=== PATIENT | female | born 1990 | race Caucasian/White ===

== ENCOUNTER 2017-01-30 02:41 | Inpatient (IN) | payer MEDICAID ==
[2017-01-30 03:20] LABS: APPEARANCE,URINE TURBID; BILIRUBIN,URINE NEGATIVE (NEGATIVE); GLUCOSE, URINE NEGATIVE (NEGATIVE); KETONES,URINE NEGATIVE (NEGATIVE); LEUKOCYTE ESTERASE,URINE TRACE (NEGATIVE); NITRITE,URINE NEGATIVE (NEGATIVE); PROTEIN,URINE 100 mg/dL (NEGATIVE); URINE SPECIFIC GRAVITY 1.003; UROBILINOGEN,URINE NEGATIVE mg/dL (<2.0)
[2017-01-30 03:30] LABS: AMNISURE (ROM) POSITIVE (NEGATIVE)
[2017-01-30 03:36] LABS: URINE BARBITURATES SCREEN NEGATIVE; URINE METHADONE SCREEN NEGATIVE; URINE OPIATES LOW NEGATIVE; URINE PHENCYCLIDINE SCREEN NEGATIVE
[2017-01-30] MEDS ORDERED: OXYTOCIN/NORMAL SALINE 1,000 ML IV PRN ×2 (03:48→11:56)
[2017-01-30] MEDS ORDERED: PENICILLIN G-K 5 MILLION UNIT VIAL IV PRN (03:50)
[2017-01-30] MEDS ORDERED: OXYTOCIN/NORMAL SALINE 20 UNIT/1,000 ML RTUINJ ONE (03:50)
[2017-01-30] MEDS ORDERED: PENICILLIN G-K 5 MILLION UNIT VIAL ONE ×2 (03:50→07:28)
[2017-01-30] MEDS ORDERED: PENICILLIN G POTASSIUM 5,000,000 UNIT in DEXTROSE 5%-WATER 100 ML IV ONE (04:00)
[2017-01-30 04:10] LABS: ABSOLUTE BASOPHILS # (AUTO) 0.1 10^3/uL (0.0-0.2); ABSOLUTE EOSINOPHILS # (AUTO) 0.2 10^3/uL (0.0-0.6); ABSOLUTE MONOCYTES (AUTO) 1.8 10^3/uL (0.1-1.4); ABSOLUTE NEUT (AUTO) 8.5 10^3/uL (1.7-8.2); BASOPHILS % (AUTO) 0.4 % (0-2); EOSINOPHILS % (AUTO) 1.3 % (0-6); HEMATOCRIT 34.8 % (36.0-47.0); HEMOGLOBIN 11.7 g/dL (12.0-15.5); HGB HCT DIFFERENCE 0.3; LYMPHOCYTES % (AUTO) 15.6 % (13-45); MEAN CORPUSCULAR HEMOGLOBIN 27.6 pg (27.0-33.4); MEAN CORPUSCULAR HGB CONC 33.5 g/dL (32.0-36.0); MEAN CORPUSCULAR VOLUME 82 fl (80-97); MONOCYTES % (AUTO) 14.7 % (3-13); RED BLOOD COUNT 4.23 10^6/uL (3.72-5.28); RED CELL DISTRIBUTION WIDTH 20.1 % (11.5-14.0); WHITE BLOOD COUNT 12.5 10^3/uL (4.0-10.5)
[2017-01-30] MEDS: RINGERS SOLUTION,LACTATED 1,000 ML IV PRN ×3 (04:10→09:39)
[2017-01-30] MEDS ORDERED: PENICILLIN G POTASSIUM 2,500,000 UNIT in DEXTROSE 5%-WATER 50 ML IV SCH (08:00)
--- NOTE | 2017-01-30 08:01 | L&D Flow Sheet ---
LD Flowsheet Datetime Report Generated by CPN: 01/30/2017 08:00 Datetime: 01/30/2017 07:51 NBP Sys/Smita/Mean (mmHg): 125 (QS system process) : 66 (QS system process) : 90 (QS system process) Pulse: 87 (QS system process) LaborFlag: Antepartum (QS system process) Datetime: 01/30/2017 07:19 NBP Sys/Smita/Mean (mmHg): 129 (QS system process) : 68 (QS system process) : 92 (QS system process) Pulse: 91 (QS system process) LaborFlag: Antepartum (QS system process) Datetime: 01/30/2017 07:16 Maternal Assessment Level of Consciousness: Fully Conscious (Sri Nazario RN) DTR's/Clonus: DTRs 2+; No Clonus (Sir Nazario RN) Headache: Denies (Sri Nazario RN) Breath Sounds, Left: Clear and Equal (Sri Nazario RN) Breath Sounds, Right: Clear and Equal (Sri Nazario RN) Nausea/Vomiting: Hx of Nausea/Vomiting (Sri Nazario RN) RUQ Epigastric Pain: Denies (Sri Nazario RN) Datetime: 01/30/2017 07:10 Medications Pitocin (milliunit): Pitocin Increased to (milliunits) @ 10 (Sri Nazario, RN) Communication Communication: RN at Bedside (Sri Nazario, RN) Communication Comments: Bedside report received from B. Ring, RN. Care assumed. (Sri Nazario, RN) Datetime: 01/30/2017 07:08 Patient Care Comments: Report to Armen Nazario RN. Care relinquished at this time. (Karen Ring, RN) Datetime: 01/30/2017 07:00 Uterine Activity Monitor Mode: External; Palpation (Karen Ring, RN) Frequency (min): 1-4 (Karen Ring, RN) Quality: Mild/Moderate (Karen Ring, RN) Duration (sec): 70-110 (Karen Ring, RN) Resting Tone (Palpate): Relaxed (Karen Ring, RN) Assessment A Monitor Mode: External US (Karen Ring, RN) FHR Baseline Rate : 145 (Karen Ring, RN) Variability: Moderate 6-25 bpm (Karen Ring, RN) Accelerations: None (Karen Ring, RN) Decelerations: None (Karen Ring, RN) Datetime: 01/30/2017 06:49 NBP Sys/Smita/Mean (mmHg): 116 (QS system process) : 63 (QS system process) : 81 (QS system process) Pulse: 83 (QS system process) LaborFlag: Antepartum (QS system process) Datetime: 01/30/2017 06:48 Pain Coping: Sleeping (Karen Ring, RN) Datetime: 01/30/2017 06:45 Uterine Activity Monitor Mode: External; Palpation (Karen Ring, RN) Frequency (min): 3-5 (Karen Ring, RN) Quality: Mild/Moderate (Karen Ring, RN) Duration (sec): 70-110 (Karen Ring, RN) Resting Tone (Palpate): Relaxed (Karen Ring, RN) Assessment A Monitor Mode: External US (Karen Ring, RN) FHR Baseline Rate : 145 (Karen Ring, RN) Variability: Absent - Undetectable (Karen Ring, RN) Accelerations: 15X15 (Karen Ring, RN) Decelerations: None (Karen Ring, RN) Medications Pitocin (milliunit): Pitocin Remains (milliunits) @ 8 (Karen Ring, RN) Datetime: 01/30/2017 06:30 Uterine Activity Monitor Mode: External; Palpation (Karen Ring, RN) Frequency (min): 3-4.5 (Karen Ring, RN) Quality: Mild/Moderate (Karen Ring, RN) Duration (sec): 40-120 (Karen Ring, RN) Duration Criteria: Less than Two 120 Second Contractions (Karen Ring, RN) Pattern: Normal: <= 5 Contractions in 10 Minutes (Karen Ring, RN) Resting Tone (Palpate): Relaxed (Karen Ring, RN) Assessment A Monitor Mode: External US (Karen Ring, RN) FHR Baseline Rate : 145 (Karen Ring, RN) Variability: Moderate 6-25 bpm (Karen Ring, RN) Accelerations: 15X15 (Karen Ring, RN) Decelerations: None (Karen Ring, RN) Medications Pitocin (milliunit): Pitocin Increased to (milliunits) @ 8 (Karen Ring, RN) Datetime: 01/30/2017 06:27 Pain Coping: Sleeping (Karen Ring, RN) Datetime: 01/30/2017 06:19 NBP Sys/Smita/Mean (mmHg): 124 (QS system process) : 60 (QS system process) : 84 (QS system process) Pulse: 89 (QS system process) Respirations: 18 (Karen Ring, RN) Temperature (F): 98.1 (Karen Ring, RN) Temperature (C): 36.7 (QS system process) Temperature Route: Oral (Karen Ring, RN) LaborFlag: Antepartum (QS system process) Datetime: 01/30/2017 06:15 Uterine Activity Monitor Mode: External; Palpation (Karen Ring, RN) Frequency (min): 2.5-5 (Karen Ring, RN) Duration (sec): 70-110 (Karen Ring, RN) Resting Tone (Palpate): Relaxed (Karen Ring, RN) Assessment A Monitor Mode: External US (Karen Ring, RN) FHR Baseline Rate : 145 (Karen Ring, RN) Variability: Moderate 6-25 bpm (Karen Ring, RN) Accelerations: None (Karen Ring, RN) Decelerations: None (Karen Ring, RN) Medications Pitocin (milliunit): Pitocin Remains (milliunits) @ 6 (Karen Ring, RN) Datetime: 01/30/2017 06:05 Patient Care Hygiene: Peripad Changed; Gown Changed (Karen Ring, RN) Datetime: 01/30/2017 06:00 Uterine Activity Monitor Mode: External; Palpation (Karen Ring, RN) Frequency (min): 3.5-6.5 (Karen Ring, RN) Quality: Mild/Moderate (Karen Ring, RN) Duration (sec): 40-90 (Karen Ring, RN) Resting Tone (Palpate): Relaxed (Karen Ring, RN) Assessment A Monitor Mode: External US (Karen Ring, RN) Monitor Interventions for FHR: Ultrasound Adjusted (Karen Ring, RN) Comments: Unable to accurately assess due to audible movement. RN remains continously at bedside adjusting monitors. (Karen Ring, RN) Medications Pitocin (milliunit): Pitocin Increased to (milliunits) @ 6 (Karen Ring, RN) Datetime: 01/30/2017 05:49 NBP Sys/Smita/Mean (mmHg): 122 (QS system process) : 65 (QS system process) : 86 (QS system process) Pulse: 91 (QS system process) LaborFlag: Antepartum (QS system process) Datetime: 01/30/2017 05:45 Uterine Activity Monitor Mode: External; Palpation (Karen Ring, RN) Frequency (min): 4-7 (Karen Ring, RN) Quality: Moderate (Karen Ring, RN) Duration (sec): 70-90 (Karen Ring, RN) Resting Tone (Palpate): Relaxed (Karen Ring, RN) Assessment A Monitor Mode: External US (Karen Ring, RN) FHR Baseline Rate : 145 (Karen Ring, RN) Variability: Moderate 6-25 bpm (Karen Ring, RN) Accelerations: 15X15 (Karen Ring, RN) Decelerations: None (Karen Ring, RN) Medications Pitocin (milliunit): Pitocin Remains (milliunits) @ 4 (Karen Ring, RN) Datetime: 01/30/2017 05:30 Uterine Activity Monitor Mode: External (Karen Ring, RN) Frequency (min): 4-5 (Karen Ring, RN) Quality: Moderate (Karen Ring, RN) Duration (sec): 50-1000 (Karen Ring, RN) Resting Tone (Palpate): Relaxed (Karen Ring, RN) Assessment A Monitor Mode: External US (Karen Ring, RN) FHR Baseline Rate : 145 (Karen Ring, RN) Variability: Moderate 6-25 bpm (Karen Ring, RN) Accelerations: 15X15 (Karen Ring, RN) Decelerations: None (Karen Ring, RN) Medications Pitocin (milliunit): Pitocin Increased to (milliunits) @ 4 (Karen Ring, RN) Datetime: 01/30/2017 05:19 NBP Sys/Smita/Mean (mmHg): 122 (QS system process) : 69 (QS system process) : 89 (QS system process) Pulse: 110 (QS system process) LaborFlag: Antepartum (QS system process) Datetime: 01/30/2017 05:15 Uterine Activity Monitor Mode: External; Palpation (Karen Ring, RN) Frequency (min): 1-5 (Karen Ring, RN) Quality: Mild/Moderate (Karen Ring, RN) Duration (sec): 50-100 (Karen Ring, RN) Resting Tone (Palpate): Relaxed (Karen Ring, RN) Assessment A Monitor Mode: External US (Karen Ring, RN) FHR Baseline Rate : 150 (Karen Ring, RN) Variability: Moderate 6-25 bpm (Karen Ring, RN) Accelerations: 10X10 (Karen Ring, RN) Decelerations: None (Karen Ring, RN) Medications Pitocin (milliunit): Pitocin Remains (milliunits) @ 2 (Karen Ring, RN) Datetime: 01/30/2017 05:00 Uterine Activity Monitor Mode: External; Palpation (Karen Ring, RN) Frequency (min): 2-7 (Karen Ring, RN) Quality: Mild/Moderate (Karen Ring, RN) Duration (sec): 80-110 (Karen Ring, RN) Duration Criteria: Less than Two 120 Second Contractions (Karen Ring, RN) Pattern: Normal: <= 5 Contractions in 10 Minutes (Karen Ring, RN) Resting Tone (Palpate): Relaxed (Karen Ring, RN) Assessment A Monitor Mode: External US (Karen Ring, RN) FHR Baseline Rate : 150 (Karen Ring, RN) Variability: Moderate 6-25 bpm (Karen Ring, RN) Accelerations: None (Karen Ring, RN) Decelerations: None (Karen Ring, RN) Medications Pitocin (milliunit): Pitocin Remains (milliunits) @ 2 (Karen Ring, RN) Datetime: 01/30/2017 04:56 Monitor Interventions for FHR: Ultrasound Adjusted (Karen Ring, RN) Datetime: 01/30/2017 04:52 NBP Sys/Smita/Mean (mmHg): 132 (QS system process) : 68 (QS system process) : 93 (QS system process) Pulse: 104 (QS system process) LaborFlag: Antepartum (QS system process) Datetime: 01/30/2017 04:48 Patient Care Comments: Pt throwing up. RN at bedside. Washcloth applied to head, blue bag for vomit provided. (Karen Ring, RN) Datetime: 01/30/2017 04:45 Uterine Activity Monitor Mode: External; Palpation (Karen Ring, RN) Frequency (min): 4-7 (Karen Ring, RN) Quality: Mild/Moderate (Karen Ring, RN) Duration (sec): 80-120 (Karen Ring, RN) Duration Criteria: Less than Two 120 Second Contractions (Karen Ring, RN) Pattern: Normal: <= 5 Contractions in 10 Minutes (Karen Ring, RN) Resting Tone (Palpate): Relaxed (Karen Ring, RN) Assessment A Monitor Mode: External US (Karen Ring, RN) FHR Baseline Rate : 145 (Karen Ring, RN) Variability: Moderate 6-25 bpm (Karen Ring, RN) Accelerations: 15X15 (Karen Ring, RN) Decelerations: None (Karen Ring, RN) Medications Pitocin (milliunit): Pitocin Remains (milliunits) @ 2 (Karen Ring, RN) Datetime: 01/30/2017 04:40 Medications Pitocin (milliunit): Pitocin Started (milliunits) @ 2 (Karen Ring, RN) Datetime: 01/30/2017 04:30 Uterine Activity Monitor Mode: External; Palpation (Karen Ring, RN) Frequency (min): 4-7 (Karen Ring, RN) Quality: Mild/Moderate (Karen Ring, RN) Duration (sec): 60-110 (Karen Ring, RN) Duration Criteria: Less than Two 120 Second Contractions (Karen Ring, RN) Pattern: Normal: <= 5 Contractions in 10 Minutes (Karen Ring, RN) Resting Tone (Palpate): Relaxed (Karen Ring, RN) Assessment A Monitor Mode: External US (Karen Ring, RN) FHR Baseline Rate : 145 (Karen Ring, RN) Variability: Moderate 6-25 bpm (Karen Ring, RN) Accelerations: 15X15 (Karen Ring, RN) Decelerations: None (Karen Ring, RN) Datetime: 01/30/2017 04:19 NBP Sys/Smita/Mean (mmHg): 122 (QS system process) : 69 (QS system process) : 90 (QS system process) Pulse: 100 (QS system process) Respirations: 18 (Karen Ring, RN) Temperature (F): 98.0 (Karen Ring, RN) Temperature (C): 36.7 (QS system process) Temperature Route: Oral (Karen Ring, RN) LaborFlag: Antepartum (QS system process) Datetime: 01/30/2017 04:11 Antibiotics: Penicillin IV (Units) @ 5 million units (Suzie Karl, RN) Patient Care Comments: Consents signed (Karen Ring, RN) Datetime: 01/30/2017 04:00 Uterine Activity Monitor Mode: External; Palpation (Karen Ring, RN) Frequency (min): 2.5-70 (Karen Ring, RN) Quality: Mild/Moderate (Karen Ring, RN) Duration (sec): 70-110 (Karen Ring, RN) Resting Tone (Palpate): Relaxed (Karen Ring, RN) Assessment A Monitor Mode: External US (Karen Ring, RN) FHR Baseline Rate : 150 (Karen Ring, RN) Variability: Moderate 6-25 bpm (Karen Ring, RN) Accelerations: 15X15 (Karen Ring, RN) Decelerations: None (Karen Ring, RN) Datetime: 01/30/2017 03:45 Communication Comments: Dr. Nolasco remains on nursing unit. Orders received to begin pitocin at 2 miliunits and increase by 2 milunits every 30 minutes for a maximum of 20 miliunits or until adequate labor is established. (Karen Ring, RN) Datetime: 01/30/2017 03:35 Communication Comments: Orders received to admit patient. (Karen Ring, RN) Datetime: 01/30/2017 03:34 Vaginal Exam Dilatation (cm): 1.0 (Karen Ring, RN) Effacement (%): 50 (Karen Ring, RN) Station: -2 (Karen Ring, RN) Exam by: Dr.Nolasco (Karen Ring, RN) Datetime: 01/30/2017 03:31 Vital Signs Stage of : Antepartum (Karen Ring, RN) Datetime: 01/30/2017 03:30 Uterine Activity Monitor Mode: External; Palpation (Karen Ring, RN) Frequency (min): 2-7 (Karen Ring, RN) Quality: Mild/Moderate (Karen Ring, RN) Duration (sec): 70-110 (Karen Ring, RN) Duration Criteria: Less than Two 120 Second Contractions (Karen Ring, RN) Pattern: Normal: <= 5 Contractions in 10 Minutes (Karen Ring, RN) Resting Tone (Palpate): Relaxed (Karen Ring, RN) Assessment A Monitor Mode: External US (Karen Ring, RN) FHR Baseline Rate : 150 (Kraen Ring, RN) Variability: Moderate 6-25 bpm (Karen Ring, RN) Accelerations: 10X10 (Karen Ring, RN) Decelerations: None (Karen Ring, RN) Communication Comments: Dr. Nolasco at bedside. (Karen Ring, RN) Datetime: 01/30/2017 02:55 Pain Pain Scale: 0 (Karen Ring, RN) Pain Presence: None/Denies (Karen Ring, RN) Pain Type: N/A (Karen Ring, RN) Vaginal Bleeding: None (Karen Ring, RN) Maternal Assessment Level of Consciousness: Fully Conscious (Karen Ring, RN) DTR's/Clonus: DTRs 2+; No Clonus (Karen Ring, RN) Headache: Denies (Karen Ring, RN) Breath Sounds, Left: Clear and Equal (Karen Ring, RN) Breath Sounds, Right: Clear and Equal (Karen Ring, RN) Nausea/Vomiting: Denies (Karen Ring, RN) RUQ Epigastric Pain: Denies (Karen Ring, RN) Teaching Instructional Method: Verbal; Patient Instructed; Family/Support Person Instructed; Verbalized Understanding (Karen Ring, RN) Unit Routine: Colver to Room; Call Gabriel; Bed; Handwashing; Flu/Illness Precautions; Monitoring; Safety/Fall Risk Prevention; Bathroom Privileges (Karen Moran, RN) Datetime: 01/30/2017 02:50 Membranes Ruptured Date/Time: 01/30/2017 00:00 (Karen Moran RN) Membranes Rupture Method: Spontaneous (Karen Moran RN) Amniotic Fluid Color: Clear (Karen Moran RN) Amniotic Fluid Amount: Small (Karen Moran RN)
[2017-01-30] MEDS ORDERED: BUPIVACAINE HCL/NS/PF 100 ML EPI PRN (09:02)
[2017-01-30] MEDS ORDERED: EPHEDRINE SULFATE INJ 50 MG/1 ML AMPULE IV PRN (09:02)
[2017-01-30] MEDS ORDERED: FENTANYL/BUPIVACAINE/NS/PF 100 ML EPI PRN (09:02)
[2017-01-30] MEDS ORDERED: BUPIVACAINE HCL 0.25 % INJ/PF (2.5 MG/1 ML) 30 ML VIAL INFIL ONE (09:02)
[2017-01-30] MEDS ORDERED: BENZOIN/ALOE VERA/STORAX/TOLU TINCTURE 60 ML TP PRN (09:02)
[2017-01-30] MEDS ORDERED: BUPIVACAINE HCL 0.25 % INJ/PF (2.5 MG/1 ML) 30 ML VIAL ONE (09:07)
[2017-01-30] MEDS ORDERED: FENTANYL/BUPIVACAINE/NS/PF 200 MCG/100 ML RTUINJ EPI ONE (09:07)
[2017-01-30] MEDS ORDERED: EPHEDRINE SULFATE INJ 50 MG/1 ML AMPULE ONE (09:07)
[2017-01-30] MEDS ORDERED: PENICILLIN G-K 5 MILLION UNIT VIAL IV SCH (10:00)
[2017-01-30] MEDS ORDERED: LIDOCAINE 1% INJ-PF (10 MG/ML) 30 ML SDV ONE (10:59)
[2017-01-30] MEDS ORDERED: MISOPROSTOL 0.2 MG TABLET ONE (10:59)
[2017-01-30] MEDS ORDERED: DIPH/PERTUSS(ACELL)/TETANUS VAC/PF 0.5 ML SYR (>=10YO) IM PRN (11:56)
[2017-01-30] MEDS ORDERED: ZOLPIDEM TARTRATE 5 MG TABLET PO PRN (11:56)
[2017-01-30] MEDS ORDERED: DIBUCAINE 1% OINTMENT 28 GM TP PRN (11:56)
[2017-01-30] MEDS ORDERED: BENZOCAINE/MENTHOL AEROSOL SPRAY 56 ML TOP PRN (11:56)
[2017-01-30] MEDS ORDERED: MEASLES,MUMPS&RUBELLA VACC/PF 0.5 ML VIAL SUBCUT PRN (11:56)
[2017-01-30] MEDS ORDERED: ACETAMINOPHEN WITH CODEINE #3 TABLET PO PRN ×2 (11:56)
[2017-01-30] MEDS ORDERED: METHYLERGONOVINE MALEATE INJ/PF 0.2 MG/1 ML AMPULE ONE (12:09)
--- NOTE | 2017-01-30 14:34 | Admission Physical ---
Datetime Report Generated by CPN: 01/30/2017 14:34 CURRENT ADMISSION Hx Assessment: The History has been Reviewed and is Current Chief Complaint: Suspected Ruptured Membranes Indication for Induction: Not Applicable Admit Plan: Admit to Unit; Initiate Labor Protocol ALLERGIES Medication Allergies: No Medication Allergies: No Known Allergies (01/30/2017) Latex: No Latex Allergies Food Allergies: denies Environmental Allergies: denies OBSTETRICAL HISTORY EDC: 02/08/2017 00:00 : 2 Para: 1 : 1 Livin Gestational Diabetes: No Rh Sensitization: No Incompetent Cervix: No SHIVANI: No Infertility: No ART Treatment: No Uterine Anomaly: No IUGR: No Hx Previous C/S: No Macrosomia: No Hx Loss/Stillborn: No PIH: No Hx : No Placenta Previa/Abruption: No Depression/PP Depression: No PTL/PROM: Yes Post Hemorrhage: No Current Procedures: Ultrasound Obstetrical History Comments: G1: 2009 36 weeks 7 lbs 5 oz [place] G2: current 2 vessel cord, high weight gain, anemia SEE RECORDS Alcohol: No Marijuana : No Cocaine: No Other Illicit Drugs: No Cigarettes: Former Smoker. 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 INFECTIOUS HISTORY Gonorrhea: No Genital Herpes: No Chlamydia: No Tuberculosis: No Syphilis: No Hepatitis: No HIV/AIDS Exposure: No Rash or Viral Illness: No HPV: No Infectious History Comments: 2006 PHYSICAL EXAM General: Normal HEENT: Deferred Neurologic: Deferred Thyroid: Deferred Heart: Normal Lungs: Deferred Breast: Deferred Back: Normal Abdomen: Normal Genitourinary Exam: Normal Extremities: Normal DTRs: Normal Pelvic Type: Adequate VAGINAL EXAM Contraction Comments: irreg MEMBRANES Membranes: Ruptured FETUS A EGA: 38.5 FHR- Baseline: 150 Variability: Moderate 6-25bpm Accelerations: 15X15 Decelerations: None FHR Category: Category I Admit Comment: Term Srom. Gbs positive for pcn. 2vc PLANS FOR LABOR AND DELIVERY Labor and Delivery: None Pain Management: Natural; Medications; Epidural Feeding Preference: Breast Benefit of Breast Feed Discussed: Yes Circumcision: N/A INFORMED CONSENT Signature: with User ID: [email or web address]
[2017-01-30] MEDS: IBUPROFEN 800 MG TABLET PO SCH ×2 (14:56→21:49)
[2017-01-30] MEDS: DOCUSATE SODIUM 100 MG CAPSULE PO SCH (17:08)
[2017-01-30] MEDS: FERROUS SULFATE 325 MG TABLET PO SCH (17:08)
--- NOTE | 2017-01-30 19:01 | L&D Flow Sheet ---
LD Flowsheet Datetime Report Generated by CPN: 01/30/2017 19:00 Datetime: 01/30/2017 14:16 NBP Sys/Smita/Mean (mmHg): 113 (QS system process) : 53 (QS system process) : 77 (QS system process) Pulse: 97 (QS system process) Datetime: 01/30/2017 13:45 NBP Sys/Smita/Mean (mmHg): 118 (QS system process) : 58 (QS system process) : 83 (QS system process) Pulse: 100 (QS system process) Datetime: 01/30/2017 13:30 NBP Sys/Smita/Mean (mmHg): 114 (QS system process) : 53 (QS system process) : 77 (QS system process) Pulse: 88 (QS system process) Datetime: 01/30/2017 13:16 NBP Sys/Smita/Mean (mmHg): 123 (QS system process) : 84 (QS system process) : 91 (QS system process) Pulse: 92 (QS system process) Respirations: 16 (Sri Nazario RN) Pain Scale: 3 (Annotations: Pt. denies need for medication at this time.) (Sri Nazario RN) Pain Presence: None/Denies (Sri Nazario RN) Pain Type: N/A (Sri Nazario RN) Pain Goal: 0 (Sri Nazario RN) Datetime: 01/30/2017 13:00 NBP Sys/Smita/Mean (mmHg): 117 (QS system process) : 56 (QS system process) : 81 (QS system process) Pulse: 81 (QS system process) Pain Scale: 0 (Sri Nazario, RN) Pain Presence: None/Denies (Sri Nazario, RN) Pain Type: N/A (Sri Nazario, RN) Pain Goal: 0 (Sri Nazario, RN) Datetime: 01/30/2017 12:45 NBP Sys/Smita/Mean (mmHg): 113 (QS system process) : 61 (QS system process) : 81 (QS system process) Pulse: 89 (QS system process) Pain Scale: 0 (Sri Nazario, RN) Pain Presence: None/Denies (Sri Nazario, RN) Pain Type: N/A (Sri Nazario, RN) Pain Goal: 0 (Sri Nazario, RN) Datetime: 01/30/2017 12:30 NBP Sys/Smita/Mean (mmHg): 113 (QS system process) : 56 (QS system process) : 78 (QS system process) Pulse: 95 (QS system process) Pain Scale: 0 (Sri Nazario, RN) Pain Presence: None/Denies (Sri Nazario, RN) Pain Type: N/A (Sri Nazario, RN) Pain Goal: 0 (Sri Nazario, RN) Datetime: 01/30/2017 12:15 NBP Sys/Smita/Mean (mmHg): 117 (QS system process) : 57 (QS system process) : 81 (QS system process) Pulse: 88 (QS system process) Respirations: 16 (Sri Nazario, RN) Pain Scale: 0 (Sri Nazario, RN) Pain Presence: None/Denies (Sri Nazario, RN) Pain Type: N/A (Sri Nazario, RN) Pain Goal: 0 (Sri Nazario, RN) Datetime: 01/30/2017 12:00 NBP Sys/Smita/Mean (mmHg): 112 (QS system process) : 56 (QS system process) : 81 (QS system process) Pulse: 83 (QS system process) Pain Scale: 0 (Sri Nazario, RN) Pain Presence: None/Denies (Sri Nazario, RN) Pain Type: N/A (Sri Nazario, RN) Pain Goal: 0 (Sri Nazario, RN) Datetime: 01/30/2017 11:45 NBP Sys/Smita/Mean (mmHg): 118 (QS system process) : 59 (QS system process) : 81 (QS system process) Pulse: 98 (QS system process) Datetime: 01/30/2017 11:39 Stage of : Recovery (Sri Nazario, RN) Datetime: 01/30/2017 11:33 Stage 2 Comments: of viable baby girl; pitocin bolusing per Dr. Carlos (Sri Nazario RN) Datetime: 01/30/2017 11:30 NBP Sys/Smita/Mean (mmHg): 112 (QS system process) : 54 (QS system process) : 78 (QS system process) Pulse: 141 (QS system process) Monitor Mode: External; Palpation (Sri Nazario RN) Frequency (min): 2-3 (Sri Nazario RN) Quality: Moderate (Sri Nazario RN) Duration (sec): 80-100 (Sri Nazario RN) Resting Tone (Palpate): Relaxed (Sri Nazario RN) Monitor Mode: External US (Sri Nazario RN) FHR Baseline Rate : 140 (Sri Nazario RN) Variability: Minimal - Undetectable to <=5 bpm (Sri Nazario RN) Accelerations: None (Sri Nazario RN) Decelerations: Variable (Sri Nazario RN) Pitocin (milliunit): Pitocin Remains (milliunits) @ 16 (Sri Nazario RN) LaborFlag: Antepartum (QS system process) Datetime: 01/30/2017 11:15 NBP Sys/Smita/Mean (mmHg): 116 (QS system process) : 57 (QS system process) : 79 (QS system process) Pulse: 90 (QS system process) Monitor Mode: External; Palpation (Sri Nazario RN) Frequency (min): 1.5-5 (Sri Nazario RN) Quality: Moderate (Sri Nazario RN) Duration (sec): 70-120 (Sri Nazario RN) Resting Tone (Palpate): Relaxed (Sri Nazario RN) Monitor Mode: External US (Sri Nazario RN) FHR Baseline Rate : 140 (Sri Nazario RN) Variability: Minimal - Undetectable to <=5 bpm (Sri Nazario RN) Accelerations: 15X15 (Sri Nazario RN) Decelerations: Variable (Sri Nazario RN) LaborFlag: Antepartum (QS system process) Datetime: 01/30/2017 11:03 Communication: Provider at Bedside (Sri Nazario RN) Provider Notified (Name): Dr. Carlos (Sri Nazario RN) Datetime: 01/30/2017 11:01 Comments: RN at bedside continuously monitoring FHTS while pt pushing with ctx. (Sri Nazario RN) Datetime: 01/30/2017 11:00 NBP Sys/Smita/Mean (mmHg): 119 (QS system process) : 56 (QS system process) : 81 (QS system process) Pulse: 96 (QS system process) Monitor Mode: External; Palpation (Sri Nazario RN) Frequency (min): 2-5 (Sri Nazario RN) Quality: Moderate (Sri Nazario RN) Duration (sec): 60-110 (Sri Nazario RN) Resting Tone (Palpate): Relaxed (Sri Nazario RN) Monitor Mode: External US (Sri Nazario RN) FHR Baseline Rate : 140 (Sri Nazario RN) Variability: Minimal - Undetectable to <=5 bpm (Sri Nazario RN) Accelerations: None (Sri Nazario RN) Decelerations: Early (Sri Nazario RN) Pitocin (milliunit): Pitocin Remains (milliunits) @ 16 (Sri Nazario RN) I/O Interventions: Hutchins Discontinued (Sri Nazario RN) LaborFlag: Antepartum (QS system process) Datetime: 01/30/2017 10:58 Dilatation (cm): 10.0 (Sri Nazario RN) Effacement (%): 100 (Sri Nazario RN) Station: 1 (Sri Nazario RN) Exam by: Armen Nazario RN (Sri Nazario RN) Datetime: 01/30/2017 10:46 NBP Sys/Smita/Mean (mmHg): 100 (QS system process) : 49 (QS system process) : 70 (QS system process) Pulse: 99 (QS system process) LaborFlag: Antepartum (QS system process) Datetime: 01/30/2017 10:45 Monitor Mode: External; Palpation (Sri Nazario, RN) Frequency (min): 1.5-5 (Sri Nazario, RN) Quality: Moderate (Sri Nazario, RN) Duration (sec): 60-90 (Sri Aravind, RN) Resting Tone (Palpate): Relaxed (Sri Nazario, RN) Monitor Mode: External US (Sri Nazario, RN) FHR Baseline Rate : 140 (Sri Nazario, RN) Variability: Moderate 6-25 bpm (Sri Nazario, RN) Accelerations: 15X15 (Sri Nazario, RN) Decelerations: Early (Sri Nazario, RN) Pitocin (milliunit): Pitocin Remains (milliunits) @ 16 (Sri Aravind, RN) Datetime: 01/30/2017 10:36 Pain Scale: 2 (Sri Nazario, RN) Pain Presence: Constant (Sri Manzanareson, RN) Pain Type: Pressure (Sri Nazario, RN) Pain Location: Perineum (Sri Nazario, RN) Pain Goal: 0 (Sri Nazario, RN) LaborFlag: Antepartum (QS system process) Datetime: 01/30/2017 10:35 Anesthesia Level Check: T8- Ribs (Sri Nazario, RN) Datetime: 01/30/2017 10:30 Monitor Mode: External; Palpation (Sri Nazario, BRANDON) Frequency (min): 2-3 (Sri Nazario RN) Quality: Moderate (Sri Nazario, RN) Duration (sec): 70-100 (Sri Nazario, RN) Resting Tone (Palpate): Relaxed (Sri Nazario, RN) Monitor Mode: External US (Sri Nazario, RN) FHR Baseline Rate : 140 (Sri Nazario RN) Variability: Moderate 6-25 bpm (Sri Nazario, RN) Accelerations: 15X15 (Sri Nazario, RN) Decelerations: Early (Sri Nazario, RN) Pitocin (milliunit): Pitocin Remains (milliunits) @ 16 (Sri Nazario, RN) Datetime: 01/30/2017 10:27 NBP Sys/Smita/Mean (mmHg): 122 (QS system process) : 56 (QS system process) : 80 (QS system process) Pulse: 98 (QS system process) LaborFlag: Antepartum (QS system process) Datetime: 01/30/2017 10:22 NBP Sys/Smita/Mean (mmHg): 128 (QS system process) : 60 (QS system process) : 87 (QS system process) Pulse: 97 (QS system process) LaborFlag: Antepartum (QS system process) Datetime: 01/30/2017 10:17 Dilatation (cm): 5.0 (Sri Nazario RN) Effacement (%): 90 (Sri Nazario RN) Station: -1 (Sri Nazario RN) Exam by: Armen Nazario RN (Sri Nazario RN) I/O Interventions: Hutchins Cath Inserted (Sri Nazario RN) Datetime: 01/30/2017 10:16 NBP Sys/Smita/Mean (mmHg): 129 (QS system process) : 64 (QS system process) : 87 (QS system process) Pulse: 108 (QS system process) LaborFlag: Antepartum (QS system process) Datetime: 01/30/2017 10:15 Monitor Mode: External US (Sri Nazario RN) FHR Baseline Rate : 140 (Sri Nazario RN) Variability: Minimal - Undetectable to <=5 bpm (Sri Nazario RN) Accelerations: None (Sri Nazario RN) Decelerations: Early (Sri Nazario RN) Pitocin (milliunit): Pitocin Remains (milliunits) @ 16 (Sri Nazario RN) Datetime: 01/30/2017 10:13 NBP Sys/Smita/Mean (mmHg): 122 (QS system process) : 58 (QS system process) : 81 (QS system process) Pulse: 108 (QS system process) LaborFlag: Antepartum (QS system process) Datetime: 01/30/2017 10:05 NBP Sys/Smita/Mean (mmHg): 108 (QS system process) : 52 (QS system process) : 74 (QS system process) Pulse: 101 (QS system process) Patient Position/Activity: Right Tilt; Semi-Fowlers (Sri Nazario RN) LaborFlag: Antepartum (QS system process) Datetime: 01/30/2017 10:04 NBP Sys/Smita/Mean (mmHg): 110 (QS system process) : 52 (QS system process) : 75 (QS system process) Pulse: 94 (QS system process) LaborFlag: Antepartum (QS system process) Datetime: 01/30/2017 10:03 NBP Sys/Smita/Mean (mmHg): 98 (QS system process) : 52 (QS system process) : 73 (QS system process) Pulse: 101 (QS system process) LaborFlag: Antepartum (QS system process) Datetime: 01/30/2017 10:02 NBP Sys/Smita/Mean (mmHg): 125 (QS system process) : 58 (QS system process) : 83 (QS system process) Pulse: 102 (QS system process) Pulse: 103 (QS system process) SpO2 (%): 85 (QS system process) LaborFlag: Antepartum (QS system process) Datetime: 01/30/2017 10:01 NBP Sys/Smita/Mean (mmHg): 133 (QS system process) : 60 (QS system process) : 87 (QS system process) Pulse: 109 (QS system process) LaborFlag: Antepartum (QS system process) Datetime: 01/30/2017 10:00 NBP Sys/Smita/Mean (mmHg): 130 (QS system process) : 65 (QS system process) : 89 (QS system process) Pulse: 101 (QS system process) Pulse: 102 (QS system process) SpO2 (%): 98 (QS system process) Monitor Mode: External; Palpation (Sri Nazario RN) Frequency (min): 2-4 (Sri Nazario RN) Quality: Moderate (Sri Nazario RN) Duration (sec): 60-110 (Sri Nazario RN) Resting Tone (Palpate): Relaxed (Sri Nazario RN) Monitor Mode: External US (Sri Nazario RN) FHR Baseline Rate : 135 (Sri Nazario RN) Variability: Moderate 6-25 bpm (Sri Nazario RN) Accelerations: 15X15 (Sri Nazario RN) Decelerations: None (Sri Nazario RN) Pitocin (milliunit): Pitocin Remains (milliunits) @ 16 (Sri Nazario RN) Epidural Procedure Other: Pump Started (Sri Nazario RN) LaborFlag: Antepartum (QS system process) Datetime: 01/30/2017 09:59 NBP Sys/Smita/Mean (mmHg): 119 (QS system process) : 64 (QS system process) : 85 (QS system process) Pulse: 101 (QS system process) Epidural Procedure: Loading Dose (Sri Nazario RN) LaborFlag: Antepartum (QS system process) Datetime: 01/30/2017 09:58 NBP Sys/Smita/Mean (mmHg): 124 (QS system process) : 63 (QS system process) : 86 (QS system process) Pulse: 101 (QS system process) LaborFlag: Antepartum (QS system process) Datetime: 01/30/2017 09:56 Epidural Procedure: Test Dose (Sri Nazario, RN) Datetime: 01/30/2017 09:55 Pulse: 92 (QS system process) SpO2 (%): 97 (QS system process) Epidural Procedure: Cath Placed (Sri Nazario, RN) LaborFlag: Antepartum (QS system process) Datetime: 01/30/2017 09:53 NBP Sys/Smita/Mean (mmHg): 133 (QS system process) : 83 (QS system process) : 101 (QS system process) Pulse: 94 (QS system process) LaborFlag: Antepartum (QS system process) Datetime: 01/30/2017 09:50 Pulse: 91 (QS system process) SpO2 (%): 97 (QS system process) LaborFlag: Antepartum (QS system process) Datetime: 01/30/2017 09:45 Pulse: 96 (QS system process) SpO2 (%): 97 (QS system process) Monitor Mode: External; Palpation (Sri Nazario RN) Frequency (min): 2-3 (Sri Nazario RN) Quality: Moderate (Sri Nazario RN) Duration (sec): 60-100 (Sri Nazario RN) Resting Tone (Palpate): Relaxed (Sri Nazario RN) Monitor Mode: External US (Sri Nazario RN) FHR Baseline Rate : 135 (Sri Nazario RN) Variability: Moderate 6-25 bpm (Sri Nazario RN) Accelerations: 15X15 (Sri Nazario RN) Decelerations: None (Sri Nazario RN) Pitocin (milliunit): Pitocin Remains (milliunits) @ 16 (Sri Nazario RN) Procedure Verify: Correct Patient Identity; Correct Side and Site are Marked; Accurate Procedure Consent Form; Agreement on Procedure to be Done; Correct Patient Position (Sri Nazario RN) Anesthesia Plans: Epidural (Sri Nazario RN) Epidural Positioning: Sitting (Sri Nazario RN) LaborFlag: Antepartum (QS system process) Datetime: 01/30/2017 09:43 Comments: RN at bedside. Tracing maternal hr due to position during epidural. (Sri Nazario RN) Anesthesia Comments: Dr. Cox at bedside. Pt. sitting up for epidural. (Sri Nazario RN) Datetime: 01/30/2017 09:38 IV/Blood Work: New IV Bag Hung (Sri Nazario, BRANDON) Datetime: 01/30/2017 09:37 Temperature (F): 98.0 (Sri Nazario RN) Temperature (C): 36.7 (QS system process) LaborFlag: Antepartum (QS system process) Datetime: 01/30/2017 09:36 NBP Sys/Smita/Mean (mmHg): 119 (QS system process) : 72 (QS system process) : 89 (QS system process) Pulse: 92 (QS system process) LaborFlag: Antepartum (QS system process) Datetime: 01/30/2017 09:30 Monitor Mode: External; Palpation (Sri Nazario RN) Frequency (min): 1.5-4 (Sri Nazario RN) Quality: Moderate (Sri Nazario RN) Duration (sec): 60-100 (Sri Nazario RN) Resting Tone (Palpate): Relaxed (Sri Nazario RN) Monitor Mode: External US (Sri Nazario RN) FHR Baseline Rate : 135 (Sri Nazario RN) Variability: Moderate 6-25 bpm (Sri Nazario RN) Accelerations: 15X15 (Sri Nazario RN) Decelerations: None (Sri Nazario RN) Pitocin (milliunit): Pitocin Remains (milliunits) @ 16 (Sri Nazario RN) Datetime: 01/30/2017 09:29 Pain Scale: 5 (Sri Nazario RN) Pain Presence: Intermittent (Sri Nazario RN) Pain Type: Contraction (Sri Nazario RN) Pain Location: Abdomen; Back (Sri Nazario RN) Pain Goal: 0 (Sri Nazario RN) Pain Assessment Comments: Epidural requested. Dr. Cox notified of pt. request for epidural. (Sri Nazario RN) LaborFlag: Antepartum (QS system process) Datetime: 01/30/2017 09:23 NBP Sys/Smita/Mean (mmHg): 119 (QS system process) : 69 (QS system process) : 89 (QS system process) Pulse: 94 (QS system process) LaborFlag: Antepartum (QS system process) Datetime: 01/30/2017 09:15 Monitor Mode: External; Palpation (Sri Nazario, RN) Frequency (min): 1-4 (Sri Nazario, RN) Quality: Moderate (Sri Nazario, RN) Duration (sec): 60-100 (Sri Aravind, RN) Resting Tone (Palpate): Relaxed (Sri Nazario, RN) Monitor Mode: External US (Sri Nazario, RN) FHR Baseline Rate : 140 (Sri Nazario, RN) Variability: Minimal - Undetectable to <=5 bpm (Sri Nazario, RN) Accelerations: None (Sri Nazario, RN) Decelerations: Late (Sri Nazario, RN) Pitocin (milliunit): Pitocin Remains (milliunits) @ 16 (Sri Nazario, RN) Datetime: 01/30/2017 09:10 Patient Position/Activity: Right Lateral (Sri Nazario, RN) Communication: RN at Bedside (Sri Nazario, RN) Datetime: 01/30/2017 09:00 Monitor Mode: External; Palpation (Sri Nazario, RN) Frequency (min): 2-4.5 (Sri Nazario, RN) Quality: Moderate (Sri Nazario, RN) Duration (sec): 60-90 (Sri Nazario, RN) Resting Tone (Palpate): Relaxed (Sri Nazario, RN) Monitor Mode: External US (Sri Nazario, RN) FHR Baseline Rate : 135 (Sri Nazario, RN) Variability: Moderate 6-25 bpm (Sri Nazario, RN) Accelerations: 15X15 (Sri Nazario, RN) Decelerations: Variable (Sri Nazario, RN) Pitocin (milliunit): Pitocin Remains (milliunits) @ 16 (Sri Nazario, RN) Datetime: 01/30/2017 08:45 Contraction Comments: UTD; Pt. up in restroom. (Sri Nazario RN) Comments: UTD; Pt. up in restroom. (Sri Nazario, RN) Pitocin (milliunit): Pitocin Increased to (milliunits) @ 16 (Sri Nazario, BRANDON) Datetime: 01/30/2017 08:44 Patient Position/Activity: Left Tilt; Semi-Fowlers (Sri Nazario RN) Datetime: 01/30/2017 08:30 Monitor Mode: External; Palpation (Sri Nazario RN) Frequency (min): 2-3 (Sri Nazario RN) Quality: Moderate (Sri Nazario RN) Duration (sec): 60-100 (Sri Nazario RN) Resting Tone (Palpate): Relaxed (Sri Nazario RN) Monitor Mode: External US (Sri Nazario RN) FHR Baseline Rate : 135 (Sri Nazario RN) Variability: Moderate 6-25 bpm (Sri Nazario RN) Accelerations: 15X15 (Sri Nazario RN) Decelerations: None (Sri Nazario RN) Pitocin (milliunit): Pitocin Remains (milliunits) @ 14 (Sri Nazario RN) Datetime: 01/30/2017 08:23 I/O Interventions: Up to BR (Sri Nazario, RN) Datetime: 01/30/2017 08:21 NBP Sys/Smita/Mean (mmHg): 120 (QS system process) : 56 (QS system process) : 80 (QS system process) Pulse: 93 (QS system process) LaborFlag: Antepartum (QS system process) Datetime: 01/30/2017 08:15 Monitor Mode: External; Palpation (Sri Nazario RN) Frequency (min): 2.5-3 (Sri Nazario RN) Quality: Moderate (Sri Nazario RN) Duration (sec): 60-80 (Sri Nazario RN) Resting Tone (Palpate): Relaxed (Sri Nazario RN) Monitor Mode: External US (Sri Nazario RN) FHR Baseline Rate : 135 (Sri Nazario RN) Variability: Moderate 6-25 bpm (Sri Nazario RN) Accelerations: 15X15 (Sri Nazario RN) Decelerations: None (Sri Nazario RN) Pitocin (milliunit): Pitocin Remains (milliunits) @ 14 (Sri Nazario RN) Datetime: 01/30/2017 08:00 Monitor Mode: External; Palpation (Sri Nazario RN) Monitor Interventions for UA: [place] Adjusted (Sri Nazario RN) Frequency (min): 2.5-5 (Sri Nazario RN) Quality: Mild (Sri Nazario RN) Duration (sec): 60-110 (Sri Nazario RN) Resting Tone (Palpate): Relaxed (Sri Nazario RN) Monitor Mode: External US (Sri Nazario RN) FHR Baseline Rate : 140 (Sri Nazario RN) Variability: Minimal - Undetectable to <=5 bpm (Sri Nazario RN) Accelerations: None (Sri Nazario RN) Decelerations: Late (Sri Nazario RN) Pitocin (milliunit): Pitocin Increased to (milliunits) @ 14 (Sri Nazario RN) Patient Position/Activity: Right Lateral (Sri Nazario RN) Communication: RN at Bedside (Sri Nazario RN) Datetime: 01/30/2017 07:51 NBP Sys/Smita/Mean (mmHg): 125 (QS system process) : 66 (QS system process) : 90 (QS system process) Pulse: 87 (QS system process) Temperature (F): 98.1 (Sri Nazario RN) Temperature (C): 36.7 (QS system process) Temperature Route: Oral (Sri Nazario RN) LaborFlag: Antepartum (QS system process) Datetime: 01/30/2017 07:45 Monitor Mode: External; Palpation (Sri Nazario RN) Frequency (min): 2-4 (Sri Nazario RN) Quality: Moderate (Sri Nazario RN) Duration (sec): 40-90 (Sri Nazario RN) Resting Tone (Palpate): Relaxed (Sri Nazario RN) Monitor Mode: External US (Sri Nazario RN) FHR Baseline Rate : 140 (Sri Nazario RN) Variability: Minimal - Undetectable to <=5 bpm (Sri Nazario RN) Accelerations: 10X10 (Sri Nazario RN) Decelerations: None (Sri Nazario RN) Pitocin (milliunit): Pitocin Remains (milliunits) @ 12 (Sri Nazario RN) Datetime: 01/30/2017 07:35 Antibiotics: Penicillin IV (Units) @ 2,500,000 units (Sri Nazario, BRANDON) Datetime: 01/30/2017 07:30 Monitor Mode: External; Palpation (Sri Nazario RN) Frequency (min): 1.5-4.5 (Sri Nazario RN) Quality: Moderate (Sri Nazario RN) Duration (sec): 60-120 (Sri Nazario RN) Resting Tone (Palpate): Relaxed (Sri Nazario RN) Monitor Mode: External US (Sri Nazario RN) FHR Baseline Rate : 145 (Sri Nazario RN) Variability: Moderate 6-25 bpm (Sri Nazario RN) Accelerations: 15X15 (Sri Nazario RN) Decelerations: None (Sri Nazario RN) Pitocin (milliunit): Pitocin Increased to (milliunits) @ 12 (Sri Nazario RN) Datetime: 01/30/2017 07:19 NBP Sys/Smita/Mean (mmHg): 129 (QS system process) : 68 (QS system process) : 92 (QS system process) Pulse: 91 (QS system process) LaborFlag: Antepartum (QS system process) Datetime: 01/30/2017 07:16 Pain Scale: 4 (Sri Nazario RN) Pain Presence: Intermittent (Sri Nazario RN) Pain Type: Contraction (Sri Nazario RN) Pain Location: Abdomen; Back (Sri Nazario RN) Pain Goal: 0 (Sri Nazario RN) Pain Relief Measures: Comfort Measures (Sri Nazario RN) Level of Consciousness: Fully Conscious (Sri Nazario RN) DTR's/Clonus: DTRs 2+; No Clonus (Sri Nazario RN) Headache: Denies (Sri Nazario RN) Breath Sounds, Left: Clear and Equal (Sri Nazario RN) Breath Sounds, Right: Clear and Equal (Sri Nazario RN) Nausea/Vomiting: Hx of Nausea/Vomiting (Sri Nazario RN) RUQ Epigastric Pain: Denies (Sri Nazario RN) LaborFlag: Antepartum (QS system process) Datetime: 01/30/2017 07:15 Monitor Mode: External; Palpation (Sri Nazario RN) Frequency (min): 1.5-4.5 (Sri Nazario RN) Quality: Moderate (Sri Nazario RN) Duration (sec): 80-110 (Sri Nazario RN) Resting Tone (Palpate): Relaxed (Sri Nazario RN) Monitor Mode: External US (Sri Nazario RN) FHR Baseline Rate : 145 (Sri Nazario RN) Variability: Moderate 6-25 bpm (Sri Nazario RN) Accelerations: 15X15 (Sri Nazario RN) Decelerations: None (Sri Nazario RN) Pitocin (milliunit): Pitocin Remains (milliunits) @ 10 (Sri Nazario RN) Datetime: 01/30/2017 07:10 Pitocin (milliunit): Pitocin Increased to (milliunits) @ 10 (Sri Nazario RN) Communication: RN at Bedside (Sri Nazario RN) Communication Comments: Bedside report received from Kashmir Moran RN. Care assumed. (Sri Nazario, RN) Datetime: 01/30/2017 07:08 Patient Care Comments: Report to Armen Nazario RN. Care relinquished at this time. (Karen Ring, RN) Datetime: 01/30/2017 07:00 Monitor Mode: External; Palpation (Karen Ring, RN) Frequency (min): 1-4 (Karen Ring, RN) Quality: Mild/Moderate (Karen Ring, RN) Duration (sec): 70-110 (Karen Ring, RN) Resting Tone (Palpate): Relaxed (Karen Ring, RN) Monitor Mode: External US (Karen Ring, RN) FHR Baseline Rate : 145 (Karen Ring, RN) Variability: Moderate 6-25 bpm (Karen Ring, RN) Accelerations: None (Karen Moran RN) Decelerations: None (Karen Moran RN)
--- NOTE | 2017-01-30 19:49 | Delivery Summary ---
Del Sum A-C Datetime Report Generated by CPN: 01/30/2017 19:49 ADMISSION DATA Chief Complaint: Suspected Ruptured Membranes Indication for Induction: Not Applicable Admission Impression: Term, Intrauterine ; No Active Labor; Ruptured Membranes Admit Provider Comments: Term Srom. Gbs positive for pcn. 2vc DELIVERY PERSONNEL Delivery Doctor:: Yessi Carlos MD Labor and Delivery Nurse:: Sri Nazario RNstudent services rep Nurse:: Toya Vivas RN Student Observers:: SN Sonido Gomes Tech/BLADE OPERATOR: Tony Hudson, HOT BLAST WORKER MATERNAL INFORMATION Delivery Anesthesia: Epidural Medications After Delivery: Pitocin Bolus-Please Comment; Methergine 0.2mg IM; Other-Please Comment Meds After Delivery Comment: Pitocin 20 units in 1000 mL NS Cytotec 1000 mcg MS Estimated Blood Loss (ml): 200 Maternal Complications: None Provider Comments: Pt now s/p over intact perineum. Head delivered OA. Shoulders and body delivered easily. TALENT ACQUISITION MANAGER/OP bulb suctioned. Cord clamped and cut. Placenta spont and intact. Female with apgars 9 and 9 delivered oer intact perineum. Mom and baby doing well. LABOR SUMMARY EDC: 02/08/2017 00:00 No. Babies in Womb: 1 Attempted: No Labor Anesthesia: Epidural LABOR INFORMATION Onset of Labor: 01/30/2017 03:30 Complete Dilatation: 01/30/2017 10:58 Oxytocin: Augmentation Group B Beta Strep: positive Antibiotics # of Doses: 2 Antibiotics Time of Last Dose: 734 Name of Antibiotic Given: PCN Steroids Given: None Reason Steroids Not Administered: Not Applicable MEMBRANES Membranes Rupture Method: Spontaneous Rupture of Membranes: 01/30/2017 00:00 Length of Rupture (hr): 11.55 Amniotic Fluid Color: Clear Amniotic Fluid Amount: Small Amniotic Fluid Odor: Normal STAGES OF LABOR Stage 1 hr: 7 Stage 1 min: 28 Stage 2 hr: 0 Stage 2 min: 35 Stage 3 hr: 0 Stage 3 min: 6 Total Time in Labor hr: 8 Total Time in Labor min: 9 VAGINAL DELIVERY Episiotomy: None Laceration Extension: N/A Laceration Type: None Sponge Count Correct: Yes Sharps Count Correct: Yes CSECTION DELIVERY Primary Indication: N/A Secondary Indication: N/A CSection Incidence: N/A Labor: N/A Elective: N/A CSection Incision: N/A BABY A INFORMATION Infant Delivery Date/Time: 01/30/2017 11:33 Method of Delivery: Vaginal Born in Route : No : N/A Forceps: N/A Vacuum Extraction: N/A Shoulder Dystocia : No PRESENTATION/POSITION BABY A Presentation: Cephalic Cephalic Presentation: Vertex Vertex Position: Left Occipital Anterior Breech Presentation: N/A PLACENTA INFORMATION BABY A Placenta Delivery Time : 01/30/2017 11:39 Placenta Method of Delivery: Spontaneous Placenta Status: Delivered SCORES BABY A Heart Rate 1 min: >100 bpm Resp Effort 1 min: Good Cry Reflex Irritability 1 min: Cough or Sneeze or Pulls Away Muscle Tone 1 min: Active Motion Color 1 min: Body Doland, Extremities Blue Resuscitation Effort 1 min: Tactile Stimulation SCORE 1 MIN: 9 Heart Rate 5 min: >100 bpm Resp Effort 5 min: Good Cry Reflex Irritability 5 min: Cough or Sneeze or Pulls Away Muscle Tone 5 min: Active Motion Color 5 min: Body Doland, Extremities Blue Resuscitation Effort 5 min: Tactile Stimulation SCORE 5 MIN: 9 INFORMATION BABY A Gestational Age at Delivery: 38.5 Gestational Status: Early Term- 37- 38.6 Weeks Outcome : Liveborn Condition : Stable Infant Sex: Female IDENTIFICATION BABY A Verification Date/Time: 01/30/2017 12:53 ID Band Number: [id number] Mother's Name Verified: Yes Infant WEIGHT/LENGTH BABY A Birthweight (gm): 3650 Infant Weight (lb): 8 Infant Weight (oz): 1 Infant Length (in): 20.25 Infant Length (cm): 51.44 CORD INFORMATION BABY A No. Cord Vessels: 2 Nuchal Cord : N/A Cord Blood Taken: Yes-For Eval (Mom's Blood Type - or O+) Infant Suction: Mouth; Nose ASSESSMENT BABY A Infant Complications: None Physical Findings at Delivery: Within Normal Limits Infant Respirations: Appears Normal Skin to Skin: Yes Skin to Skin Time (min): 60 Imaging Services Director/ALS Called : No Infant Care By: Kashmir Vivas RN Transferred To: Remains with Mother SIGNATURES Signature: with User ID: [email or web address]
[2017-01-31] MEDS: IBUPROFEN 800 MG TABLET PO SCH ×3 (05:42→22:04)
--- NOTE | 2017-01-31 06:01 | L&D General Admission ---
General Admit Datetime Report Generated by CPN: 01/31/2017 06:00 INFORMATION Patient Age: 26 (11/15/2016 14:40:QS system process) EDC: 02/08/2017 00:00 (01/30/2017 02:50:Suzie Barajas RN) EDC per Ultrasound: 02/08/2017 00:00 (01/30/2017 02:50:Suzie Barajas RN) : 2 (01/30/2017 02:50:Suzie Barajas RN) Para: 1 (01/30/2017 02:50:Suzie Barajas RN) : 1 (01/30/2017 02:50:Suzie Barajas RN) Livin (01/30/2017 02:50:Suzie Barajas RN) Baby, Number in Womb: 1 (01/30/2017 02:50:Suzie Barajas RN) CARE Primary Instructional Design Manager: [facility] (01/30/2017 02:50:Karen Ring, RN) Instructional Design Manager Other: [facility] (01/30/2017 02:50:Karen Ring, RN) Month of 1st Visit: July (01/30/2017 02:50:Karen Ring, RN) Height (in): 65 (01/30/2017 02:54:QS system process) ALLERGIES Medication Allergy: No (01/30/2017 02:50:Karen Ring, RN) Medication Allergies: No Known Allergies (01/30/2017) (01/30/2017 02:52:QS system process) Latex Allergy: No Latex Allergies (01/30/2017 02:50:Karen Ring, RN) Food Allergies: denies (01/30/2017 02:50:Karen Ring, RN) Environmental Allergies: denies (01/30/2017 02:50:Karen Ring, RN) COMMUNICATION Primary Language: Slovenian (01/30/2017 02:50:Karen Moran RN) Medical Tx Preferred Language: Slovenian (01/30/2017 02:50:Karen Moran RN) Communication Barrier(s): None (01/30/2017 02:50:Karen Moran RN) DEMOGRAPHICS Address: [address] [place] [address] [place] [address] (11/15/2016 14:40:QS system process) Zipcode: [phone] (11/15/2016 14:40:QS system process) Home (11/15/2016 14:40:QS system process) SSN: [id number] (11/15/2016 14:40:QS system process) Next of Kin Name: DAIJA GARCIA (11/15/2016 14:40:QS system process) Next of Kin (11/15/2016 14:40:QS system process) Next of Kin Relationship: OR (11/15/2016 14:40:QS system process) Date of : 1990 (11/15/2016 14:40:QS system process) Marital Status: Single (11/15/2016 14:40:QS system process) Sex: Female (11/15/2016 14:40:QS system process) Race: (11/15/2016 14:40:QS system process) Ethnicity: Non- or (11/15/2016 14:40:QS system process) Yazdanism: Latter Day (11/15/2016 14:40:QS system process) DRUG AND ALCOHOL USE Alcohol: No (01/30/2017 02:50:Karen Ring, RN) Cigarettes: Former Smoker. [id number] (01/30/2017 02:50:Karen Ring, RN) Marijuana: No (01/30/2017 02:50:Karen Ring, RN) Cocaine: No (01/30/2017 02:50:Karen Ring, RN) Other Illicit Drugs: No (01/30/2017 02:50:Karen Ring, RN) VACCINE HISTORY Influenza Vaccine: Yes (01/30/2017 02:50:Karen Ring, RN) Influenza Date: 2017 (01/30/2017 02:50:Karen Ring, RN) Pneumococcal Vaccine: Yes (01/30/2017 02:50:Karen Ring, RN) Tetanus Vaccine: Yes (01/30/2017 02:50:Karen Ring, RN) Tdap Vaccine: Yes (01/30/2017 02:50:Karen Ring, RN) Hepatitis B Vaccine: Yes (01/30/2017 02:50:Karen Moran RN) Coal Deliverer: Alexandra Lomax (01/30/2017 02:50:Karen Moran RN) Feeding Preference: Breast (01/30/2017 02:50:Karen Moran RN) Benefit of Breast Feed Discussed: Yes (01/30/2017 02:50:Karen Moran RN) Circumcision: N/A (01/30/2017 02:50:Karen Moran RN) Classes Attended: No (01/30/2017 02:50:Karen Moran RN) Tubal Ligation: Yes (01/30/2017 02:50:Karen Moran RN) Tubal Authorization Signed: N/A (01/30/2017 02:50:Karen Moran RN) Consent: N/A (01/30/2017 02:50:Karen Moran RN) Consent Signed: N/A (01/30/2017 02:50:Karen Moran RN) Pain Management Plans: Natural; Medications; Epidural (01/30/2017 02:50:Karen Moran RN) Plans for Labor and Delivery: None (01/30/2017 02:50:Karen Moran RN) Support Person: Ezra Garcia (01/30/2017 02:50:Karen Moran RN) Support Person Relationship: Significant Other (01/30/2017 02:50:Karen Moran RN) Cultural/Spritual Practice: No (01/30/2017 02:50:Karen Moran RN) Spir/Cult Dietary Needs: No (01/30/2017 02:50:Karen Moran RN) LIVING SITUATION/DISCHARGE PLAN Living Arrangements: House (01/30/2017 02:50:Karen Moran RN) Adequate Access to:: Electric; Heat; Refrigeration; Plumbing/Running water; Phone; Transportation (01/30/2017 02:50:Karen Moran RN) WIC Program: Needs referral (01/30/2017 02:50:Karen Moran RN) Discharge Senior [employer] Developer Person: Ezra (01/30/2017 02:50:Karen Moran RN) Person to Help after Discharge: Ezra (01/30/2017 02:50:Karen Moran RN) Currently Using Commun Resources: Yes (01/30/2017 02:50:Karen Moran RN) Specify Current Resource Used: Medicaid (01/30/2017 02:50:Karen Moran RN) Outside Agency/Instrument Maintenance Supervisor: No (01/30/2017 02:50:Karen Moran RN) Car Seat for Discharge: Yes (01/30/2017 02:50:Karen Moran RN) Adoption Requested: No (01/30/2017 02:50:Karen Moran RN) Pt Contact w/infant Post : N/A (01/30/2017 02:50:Karen Moran RN) LABS Blood Type: O Negative (01/30/2017 02:50:Suzie Barajas RN) Rho(G) this : Yes (01/30/2017 02:50:Suzie Barajas RN) Date Rho(G) Given: 11.15.2016 (01/30/2017 02:50:Suzie Barjaas RN) Hemoglobin: 11.7 L (01/30/2017 03:52:QS system process) Hematocrit: 34.8 L (01/30/2017 03:52:QS system process) MCV: 82 (01/30/2017 03:52:QS system process) Group Beta Strep: positive (01/30/2017 02:50:Suzie Barajas RN) Gonorrhea: Negative (01/30/2017 02:50:Suzie Barajas RN) Chlamydia: Negative (01/30/2017 02:50:Suzie Barajas RN) RPR/VDRL: Nonreactive (01/30/2017 02:50:Suzie Barajas RN) HIV Exposure Test: Negative (01/30/2017 02:50:Suzie Barajas RN) Hepatitis B: Negative (01/30/2017 02:50:Sandy Amezcua RN) Rubella: Immune (01/30/2017 02:50:Suzie Barajas RN) Varicella: Non Susceptible (01/30/2017 02:50:Suzie Barajas RN) OB/PREVIOUS HISTORY Previous Procedures: Ultrasound (01/30/2017 02:50:Karen Moran RN) Current Procedures: Ultrasound (01/30/2017 02:50:Karen Moran RN) History of Previous : No (01/30/2017 02:50:Karen Moran RN) History of Gestational Diabetes: No (01/30/2017 02:50:Karen Moran RN) History of PIH: No (01/30/2017 02:50:Karen Moran RN) History of Incompetent Cervix: No (01/30/2017 02:50:Karen Moran RN) History of Placenta Previa/Abrup: No (01/30/2017 02:50:Karen Moran RN) History of Macrosomia: No (01/30/2017 02:50:Karen Moran RN) History of IUGR: No (01/30/2017 02:50:Karen Moran RN) History of Hemorrhage: No (01/30/2017 02:50:Karen Moran RN) History of Loss/Stillborn: No (01/30/2017 02:50:Karen Moran RN) History of : No (01/30/2017 02:50:Karen Moran RN) History of D (Rh) Sensitization: No (01/30/2017 02:50:Karen Moran RN) History Recurrent Loss/Stillborn: No (01/30/2017 02:50:Karen Moran RN) History Depression/PP Depression: No (01/30/2017 02:50:Karen Moran RN) History of Uterine Anomaly/SHIVANI: No (01/30/2017 02:50:Karen Moran RN) History of Infertility: No (01/30/2017 02:50:Karen Moran RN) History of ART Treatment: No (01/30/2017 02:50:Karen Moran RN) History of SHIVANI: No (01/30/2017 02:50:Karen Moran RN) Comments Obstetrical History: G1: 2010 36 weeks 7 lbs 5 oz [place] G2: current 2 vessel cord, high weight gain, anemia (01/30/2017 02:50:Suzie Barajas RN) MEDICAL HISTORY Med Hx Diabetes: No (01/30/2017 02:50:Karen Moran RN) Med Hx Hypertension: No (01/30/2017 02:50:Karen Moran RN) Med Hx Heart Disease: No (01/30/2017 02:50:Karen Moran RN) Med Hx Autoimmune Disorder: No (01/30/2017 02:50:Karen Moran RN) Med Hx Kidney Disease/UTI: No (01/30/2017 02:50:Karen Moran RN) Med Hx Neurologic/Epilepsy: No (01/30/2017 02:50:Karen Moran RN) Med Hx Psychiatric Disorders: No (01/30/2017 02:50:Karen Moran RN) Med Hx Hepatitis/Liver Disease: No (01/30/2017 02:50:Karen Moran RN) Med Hx Varicosities/Phlebitis: No (01/30/2017 02:50:Karen Moran RN) Med Hx Thyroid Dysfunction: No (01/30/2017 02:50:Karen Moran RN) Med Hx Trauma/Violence: No (01/30/2017 02:50:Karen Moran RN) Med Hx Blood Transfusion: No (01/30/2017 02:50:Karen Moran RN) Med Hx Pulmonary (Asthma,TB): No (01/30/2017 02:50:Karen Moran RN) Med Hx Breast: No (01/30/2017 02:50:Karen Moran RN) Med Hx GROUP BILLING COORDINATOR Surgery: No (01/30/2017 02:50:Karen Moran RN) Med Hx Hospitalization/Surgery: Yes (01/30/2017 02:50:Karen Moran RN) Med Hx Anesthetic Complications: No (01/30/2017 02:50:Karen Moran RN) Med Hx Abnormal Pap Smear: No (01/30/2017 02:50:Karen Moran RN) Other Medical Diseases: No (01/30/2017 02:50:Karen Moran RN) Med Hx Significant Family Hx: No (01/30/2017 02:50:Karen Moran RN) Details of Med/Surg Hx: tubes in ears, wisdom teeth x4 removed, tonsillectomy Hx of MRSA of face; 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 (01/30/2017 02:50:Karen Moran RN) INFECTIOUS HISTORY Inf Hx Gonorrhea: No (01/30/2017 02:50:Karen Moran RN) Inf Hx Chlamydia: No (01/30/2017 02:50:Karen Moran RN) Inf Hx Syphilis: No (01/30/2017 02:50:Karen Moran RN) Inf Hx HIV/AIDS: No (01/30/2017 02:50:Karen Moran RN) Inf Hx Human Papilloma Virus: No (01/30/2017 02:50:Karen Moran RN) Inf Hx Pt/Partner Genital Herpes: No (01/30/2017 02:50:Karen Moran RN) Inf Hx Tuberculosis/Exposure: No (01/30/2017 02:50:Karen Moran RN) Inf Hx Hepatitis B,C: No (01/30/2017 02:50:Karen Moran RN) Inf Hx Rash or Viral Illness: No (01/30/2017 02:50:Karen Moran RN) Details of Infectious Hx: chlam 2006 (01/30/2017 02:50:Suzie Barajas RN) GENETIC HISTORY Gen Hx Age >=35 at MARJORIE: No (01/30/2017 02:50:Karen Moran RN) Gen Hx Thalassemia: No (01/30/2017 02:50:Karen Moran RN) Gen Hx Congenital Heart Defect: No (01/30/2017 02:50:Karen Moran RN) Gen Hx Neural Tube Defect: No (01/30/2017 02:50:Karen Moran RN) Gen Hx Down's Syndrome: No (01/30/2017 02:50:Karen Moran RN) Gen Hx Tommy-Sachs: No (01/30/2017 02:50:Karen Moran RN) Gen Hx Cameron: No (01/30/2017 02:50:Karen Moran RN) Gen Hx Familial Dysautonomia: No (01/30/2017 02:50:Karen Moran RN) Gen Hx Sickle Cell Disease/Trait: No (01/30/2017 02:50:Karen Moran RN) Gen Hx Hemophilia/Blood Disorder: No (01/30/2017 02:50:Karen Moran RN) Gen Hx Muscular Dystrophy: No (01/30/2017 02:50:Karen Moran RN) Gen Hx Cystic Fibrosis: No (01/30/2017 02:50:Karen Moran RN) Gen Hx Huntingtons Chorea: No (01/30/2017 02:50:Karen Moran RN) Gen Hx Mental Retardation/Autism: No (01/30/2017 02:50:Karen Moran RN) Gen Hx Tested for Fragile X: No (01/30/2017 02:50:Karen Moran RN) Gen Hx Other Inher/Chromosomal: No (01/30/2017 02:50:Karen Moran RN) Gen Hx Maternal Metabolic DO: No (01/30/2017 02:50:Karen Moran RN) Gen Hx Pt Father or FOB Defect: No (01/30/2017 02:50:Karen Moran RN) Gen Hx Other Genetic History: No (01/30/2017 02:50:Karen Moran RN) Gen Hx Drugs/Meds since LMP: Yes (01/30/2017 02:50:Karen Moran RN) Gen Hx Medications: PNV, iron (01/30/2017 02:50:Karen Moran RN)
--- NOTE | 2017-01-31 06:01 | L&D Current Admission ---
Current Admit Datetime Report Generated by CPN: 01/31/2017 06:00 ADMISSION INFORMATION Current Admit Date/Time: 01/30/2017 03:35 (01/30/2017 04:23:Karen Moran RN) Reason for Admission: Rupture of Membranes (01/30/2017 04:23:Karen Moran RN) Chief Complaint: Suspected Rupture of Membranes (01/30/2017 04:23:Karen Moran RN) Medications During : Diphenhydramine (Benedryl); Folic Acid; Ferrous Sulfate (Iron); Vitamin (01/30/2017 04:23:Karen Moran RN) EGA per Dates: 38.5 (01/30/2017 04:23:QS system process) EGA per US: 38.5 (01/30/2017 04:23:QS system process) Method of Arrival: Wheelchair (01/30/2017 04:23:Karen Moran RN) Admitted From: Home (01/30/2017 04:23:Karen Moran RN) Reason for Induction: Premature Rupture of Membranes (01/30/2017 04:23:Karen Moran RN) Records Available: Yes (01/30/2017 04:23:Karen Moran RN) General Admission Information: Reviewed; Updated; Confirmed (01/30/2017 04:23:Karen Moran RN) General Admission Reviewed By: Kashmir Moran RN (01/30/2017 04:23:Karen Moran RN) BELONGINGS/ADVANCED DIRECTIVES Other Belongings: See [facility] belongings form (01/30/2017 04:23:Karen Moran RN) Disposition of Belongings: Kept with Patient (01/30/2017 04:23:Karen Moran RN) Advance Direct for Healthcare: No, and Wants No Information (01/30/2017 04:23:Karen Moran RN) Durable Power of Barrel Drum Cutter: No (01/30/2017 04:23:Karen Moran RN) Living Will: No (01/30/2017 04:23:Karen Moran RN) Organ Donor: Yes (01/30/2017 04:23:Karen Moran RN) Pt Rights Information Given: Yes (01/30/2017 04:23:Karen Moran RN) Pt Understands Pt Rights: Yes (01/30/2017 04:23:Karen Moran RN) DOMESTIC VIOLANCE SCREENING Dom Viol Threatened/Hurt: No (01/30/2017 04:23:Karen Moran RN) Hx of Abuse/Neglect past 2yrs: No (01/30/2017 04:23:Karen Moran RN) Feel Unsafe Going Home: No (01/30/2017 04:23:Karen Moran RN) Addt'l Observ Indicating Abuse: No (01/30/2017 04:23:Karen Moran RN) Reason Unable to Complete Screen: N/A, Screen Completed (01/30/2017 04:23:Karen Moran RN) Considered Personal Harm/Suicide: No (01/30/2017 04:23:Karen Moran RN) NUTRITIONAL/FUNCTIONAL SCREENING Problem with Appetite >5 Days: No (01/30/2017 04:23:Karen Moran RN) Chew/Swallow Difficulties: No (01/30/2017 04:23:Karen Moran RN) Inappropriate Wt Gain/Loss: No (01/30/2017 04:23:Karen Moran RN) Presence Skin Breakdown/Ulcer: No (01/30/2017 04:23:Karen Moran RN) Special Diet: No (01/30/2017 04:23:Karen Moran RN) Pt Requests Straightening Machine Operator Visit: No (01/30/2017 04:23:Karen Moarn RN) Hx of Any of the Following?: N/A (01/30/2017 04:23:Karen Moran RN) New Diagnosis of: N/A (01/30/2017 04:23:Karen Moran RN) Requires Assist w/Ambulation: No (01/30/2017 04:23:Karen Moran RN) Uses Assist Device to Ambulate: No (01/30/2017 04:23:Karen Moran RN) Pt Requires Help w/ADL's: No (01/30/2017 04:23:Karen Moran RN)
--- NOTE | 2017-01-31 06:16 | L&D Care Plan ---
LD CARE PLANS Datetime Report Generated by CPN: 01/31/2017 06:15 Datetime: 01/30/2017 04:17 Pain State: Risk For (Suzei Barajas RN) Related To: Labor and Delivery Process; Surgical Procedure; Complication(s) of ; Disease Process; Treatment and Procedures; Post (Suzie Barajas RN) Goal(s): Patients Pain will be Assessed and Managed; Patient will Verbalize Adequate Relief of Pain or the Ability to [place] with Current Pain (Suzie Barajas RN) Interventions: Assess Pain Severity on Scale of 0 (None) to 5 (Severe); Assess Type, Location and Intensity of Pain Each Time Client Reports Discomfort and Notify Provider if Unusal Pain Develops; Encourage Proper Breathing and Relaxation Techniques; Offer Alternatives Such as Repositioning, Calm Environment, Massages, Diversional Activities, Ice Pack, Splinting, and Ambulation; Administer Analgesics as Ordered; Assist with Epidural Placement as Appropriate; Evaluate Therapeutic Effectiveness of Medication and Treatments (Suzie Barajas RN) Outcome: Patient will Report Absence or Relief of Pain Consistent with Established Pain Goal (Suzie Barajas RN) Status: Ongoing (Suzie Barajas RN) Outcome: Patient will have a Decrease in Signs and Symptoms of Discomfort (Suzie Barajas RN) Status: Ongoing (Suzie Barajas RN) Outcome: Pain will be Controlled During Procedures (Suzie Barajas RN) Status: Ongoing (Suzie Barajas RN) Anxiety State: Risk For (Suzie Barajas RN) Related To: Labor and Delivery Process; Surgical Procedure; Perceived or Actual Threat to ; Fear of Unknown; Situational Crisis; Medical Interventions; Significant Life Event (Suzie Barajas RN) Goal(s): Patient will have Decreased Anxiety and be able to Function at Acceptable Levels (Suzie Barajas RN) Interventions: Assess Verbal and Nonverbal Behavioral Indicators of Anxiety; Assist Patient to Identify and Verbalize Symptoms of Anxiety; Identify and Demonstrate Techniques to Control Anxiety; Assist Patient with Coping Mechanisms to Manage Anxiety; Provide Theraputic Touch for the Patient; Explain to Patient, Using a Calm Reassuring Approach and Nonmedical Terms, All Activities, Procedures, and Concerns; Instruct Patient and Family about Post Discharge Care, Limitations, Symptoms to Report and Resources Available (Suzie Barajas RN) Outcome: Patient will Identify, Verbalize and Demonstrate Techniques to Control Anxiety (Suzie Barajas RN) Status: Ongoing (Suzie Barajas RN) Outcome: Patient's Posture, Facial Expressions, Gestures and Activity Level will Reflect Decreased Anxiety (Suzie Barajas RN) Status: Ongoing (Suzie Barajas RN) Outcome: Patient will Verbalize a Sense of Control and/or Acceptance of the Situation (Suzie Barajas RN) Status: Ongoing (Suzie Barajas RN) Outcome: Patient will Identify and Utilize Support Person (Suzie Barajas RN) Status: Ongoing (Suzie Barajas RN) Knowledge Deficit State: Risk For (Suzie Baarjas RN) Related To: Labor and Delivery Process; Surgical Procedures; Treatment and Procedures; Impending Alterations in Family Dynamics; Feeding and Infant Care; Community Resources and Available Support Mechanisms (Suzie Barajas RN) Goal(s): Patient will Accurately Verbalize Understanding of Plan of Care and Treatment; Patient and Family will Accurately Verbalize Understanding of the Disease Process (Suzie Barajas RN) Interventions: Assess Motivation and Willingness of Patient/Family to Learn; Assess Preferred Learning Mode: One to One Instruction, Reading, Videos, Group Discussion or Demonstration; Assess Barriers to Learning: Pain, Emotional State, Language Barrier, Cognitive Impairment, Visual or Hearing Deficits; Assess Patient and Family Knowledge of Disease Process, Medications and Treatment; Discuss Therapy and/or Treatment Options, Describe Rationale Behind Management, Therapy and Treatment Recommendations; Instruct Patient and Family on Signs and Symptoms to Report; Instruct Patient and Family on Medication Effects and Side Effects; Provide Appropriate and Timely Education Using Multiple Techniques; Provide Patient and Family with Support Group Information and Resources; Give Clear and Thorough Explanations and Demonstrations (Suzie Barajas RN) Outcome: Patient and Family will Verbalize Understanding of Condition, Treatment and Signs and Symptoms to Report (Suzie Barajas RN) Status: Ongoing (Suzie Barajas RN) Outcome: Patient will Identify Perceived Learning Needs and Express Motivation to Learn (Suzie Barajas RN) Status: Ongoing (Suzie Barajas RN) Outcome: Patient will Verbalize Understanding of Desired Content, and/or Performs Desired Skill Prior to Discharge (Suzie Barajas RN) Status: Ongoing (Suzie Barajas RN) Infection State: Risk For (Suzie Barajas RN) Related To: Surgical Procedures; Prolonged Labor or Induction; Premature/Prolonged Rupture of Membranes; Invasive Procedures; Altered Tissue Integrity (Suzie Barajas RN) Goal(s): The Patient will be Free of Infection, Vital Signs Stable and Lab Work within Normal Parameters (Suzie Barajas RN) Interventions: Instruct and Reinforce Proper Handwashing, Hygiene, and Care Techniques to Patient and Family; Monitor Vital Signs; Monitor Patient for the Following Signs of Infection: Fever, Abdominal Tenderness, Unusual Discharge; Monitor Aminiotic Fluid, Urine and Lochia for Color and Odor; Observe Wounds, Incisions and Invasive Line Sites for Redness, Drainage and Edema; Assess IV Sites per Hospital Policy; Monitor Lab and Test Results and Notify Provider of Abnormal Findings; Assess Nutritional Status and Promote Good Nutrition (Suzie Barajas RN) Outcome: Patient will Remain Free of Infection (Suzie Barajas RN) Status: Ongoing (Suzie Barajas RN) Outcome: Infection will be Recognized Early to Allow for Prompt Treatment (Suzie Barajas RN) Status: Ongoing (Suzei Barajas RN) Outcome: Patient will have Vital Signs Within Expected Range (Suzie Barajas RN) Status: Ongoing (Suzie Barajas RN) Fluid Volume State: Risk For (Suzie Barajas RN) Related To: Surgical Procedures; Prolonged Labor or Induction; Hemorrhage; Disease Process; Anesthesia (Suzie Barajas RN) Goal(s): Patient will Achieve and Maintain a Balanced Fluid Volume Status; Hemodynamically Stable (Suzie Barajas RN) Interventions: Monitor Vital Signs; Auscultate Breath Sounds; Monitor Patient for Skin Turgor, Mucous Membranes, Dry Skin, Weakness, Headaches and Confusion; Provide Oral Fluids as Ordered; Initiate and Maintain Intravenous Fluids as Ordered; Monitor Intake and Output as Indicated Per Patient Status; Accurately Measure Blood Loss; Monitor Lab and Test Results as Obtained and Notify Provider of Abnormal Findings; Monitor Patient's Weight (Suzie Barajas RN) Outcome: Patient will have Clear Lung Sounds (Suzie Barajas RN) Status: Ongoing (Suzie Barajas RN) Outcome: Patient will have Vital Signs within Expected Range (Suzie Barajas RN) Status: Ongoing (Suzie Barajas RN) Outcome: Urine Output will be within Expected Range (Suzie Barajas RN) Status: Ongoing (Suzie Barajas RN) Outcome: Patient will have Minimal Generalized or Upper Extremity Edema (Suzie Barajas RN) Status: Ongoing (Suzie Barajas RN) Injury State: Risk For (Suzie Barajas RN) Related To: Labor and Delivery Process; Anesthesia; Altered Coagulation; Risk to Status; Uteroplacental Perfusion; Decreased Mobility; Hemorrhage, Placenta Previa and or Placental Abruption; Uterine Rupture (Suzie Barajas RN) Goal(s): Patient will Remain Free from Injury (Suzie Barajas RN) Interventions: Monitoring as per Hospital Protocol; Assess Neurological Status; Perform Risk Assessment of Patients with Induction and ; Perform Fall Risk Assessment and Prevention per Hospital Protocol; Perform DVT Risk Assessment and Prophylaxis per Hospital Protocol; Ensure that Oxygen, Suction, and Resuscitation Medications and Equipment are Readily Available; Confirm Patient ID Prior to Procedure(s) and Medication Administration per Hospital Policy (Suzie Barajas RN) Outcome: Successful Fall Risk Prevention (Suzie Barajas RN) Status: Ongoing (Suzei Barajas RN) Outcome: Patient will Deliver without Adverse [place] (Suzie Barajas RN) Status: Ongoing (Suzie Barajas RN) Outcome: Patient's Neurological Status will Remain Stable (Suzie Barajas RN) Status: Ongoing (Suzie Barajas RN) Impaired Skin Integrity State: Risk For (Suzie Barajas RN) Related To: Vaginal Delivery; Surgical Procedures; Prolonged Bedrest; Altered Tissue Integrity; Invasive Procedures (Suzie Barajas RN) Goal(s): Patient will Maintain Optimal Skin Integrity, Free of Breakdown, Injury or Infection (Suzie Barajas RN) Interventions: Complete Screening for Pressure Ulcer Risk and Initiate Protocol per Hospital Policy; Monitor Site of Skin Impairment for Color Changes, Redness, Swelling, Warmth, Pain or Other Signs of Infection; Encourage and Assist with Position Changes; Monitor Patient's Mobility Status; Provide Adequate Nutrition and Fluids; Teach Patient Appropriate Hygienic Care; Teach Patient/Family Skin Care Management (Suzie Barajas RN) Outcome: Patient will not have Evidence of Injury Such as Skin Breakdown, Scrapes, Cuts, or Bruising (Suzie Barajas RN) Status: Ongoing (Suzie Barajas RN) Outcome: Patient will Report Any Altered Sensation or Pain at Site of Skin Impairment (Suzie Barajas RN) Status: Ongoing (Suzie Barajas RN) Outcome: Patients Incisions and Wounds will be without Signs or Symptoms of Infection (Suzie Barajas RN) Status: Ongoing (Suzie Barajas RN) Outcome: Patient will Demonstrate Understanding of Plan to Heal Skin and Prevent Reinjury and Verbalize Risk Factors (Suzie Barajas RN) Status: Ongoing (Suzie Barajas RN)
[2017-01-31 07:50] LABS: HEMATOCRIT 32.7 % (36.0-47.0); HEMOGLOBIN 10.8 g/dL (12.0-15.5); HGB HCT DIFFERENCE -0.3; MEAN CORPUSCULAR HEMOGLOBIN 27.5 pg (27.0-33.4); MEAN CORPUSCULAR HGB CONC 33.1 g/dL (32.0-36.0); MEAN CORPUSCULAR VOLUME 83 fl (80-97); RED BLOOD COUNT 3.94 10^6/uL (3.72-5.28); WHITE BLOOD COUNT 11.9 10^3/uL (4.0-10.5)
[2017-01-31] MEDS: PRENATAL VITAMIN W-O CA NO5/FE FUMARATE/FA CAPSULE PO SCH (10:23)
[2017-01-31] MEDS: DOCUSATE SODIUM 100 MG CAPSULE PO SCH ×2 (10:23→17:56)
[2017-01-31] MEDS: SENNOSIDES/DOCUSATE 8.6-50 MG 1 EACH TABLET PO SCH (10:23)
[2017-01-31] MEDS: FERROUS SULFATE 325 MG TABLET PO SCH ×2 (10:23→17:57)
--- NOTE | 2017-01-31 14:27 | PDOC PROGRESS REPORT ---
Subjective-OB Subjective: Post Delivery Day: 1 26 year old G2 now P2 s/p pp day 1. Reports ambulating, voiding and without difficulty. Denies any needs at this time Physical Exam (OB) Vital Signs: Temp Pulse Resp BP Pulse Ox 97.6 F 74 18 120/70 98 01/31/17 07:39 01/31/17 07:39 01/31/17 07:39 01/31/17 07:39 01/31/17 07:39 Intake & Output 01/30/17 01/31/17 02/01/17 06:59 06:59 06:59 Intake Total 350 Balance 350 Weight 99.1 kg - General General Appearance: Appears well In distress: None - Episiotomy/Laceration Site Condition: N/A - Lochia Lochia Amount: Small 10-25 ml Lochia Color: Rubra/Red - Abdomen Description: Soft Hernia Present: No Fundal Description: Firm, Midline Fundal Height: u/u - u/2 - Respiratory Respiratory Status: No respiratory distress - Neurological Cognition: Normal Orientation: AAOx4 - Psychological Associated symptoms: Normal mood - baby and friend at bedside, Flat affect Objective-Diagnostic Laboratory: 01/31/17 07:34 01/31/17 01/31/17 07:34 07:34 WBC 11.9 H RBC 3.94 Hgb 10.8 L Hct 32.7 L MCV 83 MCH 27.5 MCHC 33.1 RDW 21.0 H Plt Count 147 L Blood Type O NEGATIVE 01/30/17 07:43 Nasophary (Mrsa Only) MRSA Culture - Final NO MRSA RECOVERED Assessment and Plan(PN) - Assessment and Plan (1) Delivery normal Is this a current diagnosis for this admission?: YesPlan: continue stay (2) Anemia Qualifiers: Anemia type: unspecified type Qualified Code(s): D64.9 - Anemia, unspecified Is this a current diagnosis for this admission?: YesPlan: iron supplementation - Time Spent with Patient Time with patient: Less than 15 minutes Medications reviewed and adjusted accordingly: Yes - Disposition Anticipated Discharge: Home Within: within 24 hours
[2017-02-01] MEDS: IBUPROFEN 800 MG TABLET PO SCH (06:15)
[2017-02-01 09:01] VITALS: BP 111/66
[2017-02-01] MEDS: FERROUS SULFATE 325 MG TABLET PO SCH (09:22)
[2017-02-01] MEDS: SENNOSIDES/DOCUSATE 8.6-50 MG 1 EACH TABLET PO SCH (09:22)
[2017-02-01] MEDS: PRENATAL VITAMIN W-O CA NO5/FE FUMARATE/FA CAPSULE PO SCH (09:22)
[2017-02-01] MEDS: DOCUSATE SODIUM 100 MG CAPSULE PO SCH (09:22)
--- NOTE | 2017-02-01 10:19 | PDOC PROGRESS REPORT ---
Subjective-OB Subjective: Post Delivery Day: 26 year old. Denies any needs at this time Doing well, no c/o, voiding,scant lochia, diet taken well, ambulating Physical Exam (OB) Vital Signs: Temp Pulse Resp BP Pulse Ox 98.1 F 85 16 111/66 98 02/01/17 08:32 02/01/17 08:32 02/01/17 08:32 02/01/17 07:50 02/01/17 08:32 Intake & Output 01/31/17 02/01/17 02/02/17 06:59 06:59 06:59 Intake Total 650 Balance 650 - Lochia Lochia Amount: Scant < 10 ml Lochia Color: Rubra/Red - Abdomen Description: Soft, Round Hernia Present: No Fundal Description: Firm, Midline Fundal Height: u/u - u/2 Objective-Diagnostic Laboratory: 01/31/17 07:34 01/31/17 07:34 Blood Type O NEGATIVE 01/30/17 07:43 Nasophary (Mrsa Only) MRSA Culture - Final NO MRSA RECOVERED Assessment and Plan(PN) - Assessment and Plan (1) Anemia Qualifiers: Anemia type: unspecified type Qualified Code(s): D64.9 - Anemia, unspecified Is this a current diagnosis for this admission?: Yes (2) Delivery normal Is this a current diagnosis for this admission?: Yes - Time Spent with Patient Time with patient: Less than 15 minutes Medications reviewed and adjusted accordingly: Yes - Disposition Anticipated Discharge: Home Within: Other - home today
--- NOTE | 2017-02-01 10:22 | PDOC DISCHARGE SUMMARY ---
Final Diagnosis Discharge Date: 02/01/17 - Final Diagnosis (1) Anemia Is this a current diagnosis for this admission?: Yes (2) Delivery normal Is this a current diagnosis for this admission?: Yes Discharge Data - Discharge Medication Home Medications: Ferrous Sulfate [Iron] 325 mg PO DAILY 01/30/17 Vit/Iron Fumarate/FA [ Tablet] 1 each PO DAILY 01/30/17 Gestational Age: 38.5 Reason(s) for Admission: PROM, Group B Strep Positive Procedures: Ultrasound Intrapartum Procedure(s): Spontaneous Vaginal Delivery - [place] Data Baby 1 Female at 1 minute: 9 at 5 minutes: 9 Weight: 3.657 kg Home with Mother: Yes Complications: No - Diagnosis Test Laboratory: Temp Pulse Resp BP Pulse Ox 98.1 F 85 16 111/66 98 02/01/17 08:32 02/01/17 08:32 02/01/17 08:32 02/01/17 07:50 02/01/17 08:32 01/30/17 01/30/17 01/31/17 02:52 03:52 07:34 RBC 4.23 3.94 Hgb 11.7 L 10.8 L Hct 34.8 L 32.7 L Urine Opiates Screen NEGATIVE - Discharge information/Instructions Discharge Activity: Activity As Tolerated, No Lifting Over 10 Pounds, Pelvic Rest, No tub bath Discharge Diet: As Tolerated, Regular Disposition: HOME, SELF-CARE Follow up with: [facility] in: 4, Weeks
== END 2017-02-01 14:12 | disposition home or self-care (01) | DRG 775 ==
LOC: LC 02:41 → LR 03:36 → 2S 14:32
PROVIDERS: ADMIT Obstetrics & Gynecology; ATTEND Obstetrics & Gynecology
PROC: 10E0XZZ Delivery of Products of Conception, External Approach (ICD-10-PCS; principal; 2017-01-30)
PROC: 3E0234Z Introduction of Serum, Toxoid and Vaccine into Muscle, Percutaneous Approach (ICD-10-PCS; 2017-01-30)
PROC: 4A1HXCZ Monitoring of Products of Conception, Cardiac Rate, External Approach (ICD-10-PCS; 2017-01-30)
DX: O42.02 Full-term premature rupture of membranes, onset of labor within 24 hours of rupture (principal); O26.893 Other specified pregnancy related conditions, third trimester; O99.02 Anemia complicating childbirth; D64.9 Anemia, unspecified; O99.824 Streptococcus B carrier state complicating childbirth; Z86.14 Personal history of Methicillin resistant Staphylococcus aureus infection; Z87.891 Personal history of nicotine dependence; Z67.41 Type O blood, Rh negative; Z3A.38 38 weeks gestation of pregnancy; Z37.0 Single live birth
CPT/HCPCS: 36415; 80307; 81005; 84112; 85025; 85027; 85461; 86592; 86850; 86900; 86901; 87070; 88307; J2210; J2540; J2590; J2790; J3490

== ENCOUNTER 2017-06-30 06:19 | Day surgery (SDC) | payer MEDICAID ==
[2017-06-28 09:54] LABS: HEMATOCRIT 40.4 % (36.0-47.0); HGB HCT DIFFERENCE 1.6; MEAN CORPUSCULAR HEMOGLOBIN 33.4 pg (27.0-33.4); MEAN CORPUSCULAR HGB CONC 34.8 g/dL (32.0-36.0); MEAN CORPUSCULAR VOLUME 96 fl (80-97); RED BLOOD COUNT 4.21 10^6/uL (3.72-5.28); WHITE BLOOD COUNT 8.7 10^3/uL (4.0-10.5)
[2017-06-28 11:18] LABS: APPEARANCE,URINE CLEAR; BILIRUBIN,URINE NEGATIVE (NEGATIVE); GLUCOSE, URINE NEGATIVE (NEGATIVE); KETONES,URINE NEGATIVE (NEGATIVE); LEUKOCYTE ESTERASE,URINE NEGATIVE (NEGATIVE); NITRITE,URINE NEGATIVE (NEGATIVE); PROTEIN,URINE NEGATIVE (NEGATIVE); URINE SPECIFIC GRAVITY 1.019; UROBILINOGEN,URINE NEGATIVE mg/dL (<2.0)
[~2017-06-30 06:19] MED LIST: LACTATED RINGERS 1000 ML IV PRN; LIDOCAINE 0.5% INJ-PF (5 MG/ML) 50 ML SDV SUBCUT PRN
[2017-06-30] MEDS ORDERED: FAMOTIDINE INJ/PF 20 MG/2 ML SDV IV ONE (07:27)
[2017-06-30] MEDS ORDERED: SCOPOLAMINE HYDROBROMIDE 1.5 MG PATCH.TD72 ONE (07:31)
[2017-06-30] MEDS ORDERED: ALBUTEROL SULFATE 0.083% NEB 2.5 MG/3 ML AMPUL NEB ONE (07:53)
[2017-06-30] MEDS ORDERED: ACETAMINOPHEN 0 ML IV ONE (08:30)
[2017-06-30] MEDS ORDERED: MIDAZOLAM 2 MG/2 ML INJ ONE (08:30)
[2017-06-30] MEDS ORDERED: HYDROMORPHONE HCL INJ/PF 2 MG/ML AMPULE ONE (08:30)
[2017-06-30] MEDS ORDERED: PROPOFOL INJ 200 MG/20 ML VIAL IV ONE (08:30)
[2017-06-30] MEDS ORDERED: ACETAMINOPHEN 100 ML IV ONE (09:07)
[2017-06-30] MEDS ORDERED: DIPHENHYDRAMINE HCL 50 MG/ML VIAL IV PRN (09:31)
[2017-06-30] MEDS ORDERED: FENTANYL CITRATE INJ/PF 100 MCG/2 ML AMPUL IV PRN ×3 (09:31)
[2017-06-30] MEDS ORDERED: MORPHINE SULFATE 10 MG/ML INJ IV PRN (09:31)
[2017-06-30] MEDS ORDERED: PROMETHAZINE HCL INJ 25 MG/1 ML VIAL IV PRN (09:31)
[2017-06-30] MEDS: FENTANYL CITRATE INJ/PF 100 MCG/2 ML AMPUL ONE ×2 (09:35→09:45)
[2017-06-30] MEDS ORDERED: RINGERS SOLUTION,LACTATED 1,000 ML IV PRN (10:08)
[2017-06-30] MEDS ORDERED: DEXAMETHASONE SOD PHOSPHATE INJ 4 MG/1 ML VIAL ONE (10:22)
[2017-06-30] MEDS ORDERED: GLYCOPYRROLATE INJ 0.4 MG/2 ML VIAL ONE (10:22)
[2017-06-30] MEDS ORDERED: ROCURONIUM BROMIDE INJ 50 MG/5 ML VIAL IV ONE (10:22)
[2017-06-30] MEDS ORDERED: SUCCINYLCHOLINE CHLORIDE INJ 200 MG/10 ML VIAL ONE (10:22)
[2017-06-30] MEDS ORDERED: ONDANSETRON HCL INJ/PF 4 MG/2 ML SDV ONE (10:22)
[2017-06-30] MEDS ORDERED: NEOSTIGMINE METHYLSULFATE 10 MG/10 ML VIAL ONE (10:22)
[2017-06-30] MEDS ORDERED: IBUPROFEN 800 MG TABLET PO PRN (10:30)
[2017-06-30] MEDS ORDERED: MORPHINE SULFATE 10 MG/ML INJ IM PRN (10:30)
[2017-06-30] MEDS ORDERED: OXYCODONE-ACETAMINOPHEN 5-325 MG TABLET PO PRN ×2 (10:30)
[2017-06-30 11:48] VITALS: BP 104/57
--- NOTE | 2017-08-08 18:07 | OPERATIVE REPORT E ---
Operative Report NAME: OSCAR SCOTT : 1990 AGE: 27Y DATE OF SURGERY: ROOM: PREOPERATIVE DIAGNOSIS: PATIENT DESIRING PERMANENT STERILIZATION. POSTOPERATIVE DIAGNOSIS: PATIENT DESIRING PERMANENT STERILIZATION. OPERATION: Laparoscopic bilateral partial salpingectomy. SURGEON: Danny Cline D.O. MANAGER CORPORATE RESPONSIBILITY: None. ANESTHESIA: General endotracheal. COMPLICATIONS: None. TISSUE REMOVED OR ALTERED: Bilateral tubal segments. ESTIMATED BLOOD LOSS: Less than 5 mL. FINDINGS: Normal pelvic anatomy. PROCEDURE: The patient was taken to the operating room where she was placed in a dorsal supine position upon the operating table. She was then administered her general endotracheal anesthesia. Once this was done, she was placed in a dorsal lithotomy position. She was then prepped and draped in a normal sterile fashion. An open-sided speculum was then placed inside the patient's vagina. The cervix was easily visualized was grasped at the anterior lip with a single tooth tenaculum. The uterus was then sounded to 7 cm and an acorn uterine manipulator was placed inside the uterus without difficulty. The speculum was then removed from the patient's vagina. The surgeon then changed gloves and a 5-mm incision was made at the base of the patient's umbilicus where a 5-mm direct Optiview scope was passed through the incision into the peritoneal cavity under direct visualization. Once inside the peritoneal cavity, CO2 gas was connected and turned on and opening pressure was noted to be less than 5. The patient's abdomen was then allowed to fill with CO2 gas. Following this, two 5-mm ports were placed in the left lower quadrant under direct visualization without evidence of trauma or injury. Following this, the Harmonic device was then used to transect the distal two-thirds of each fallopian tube without difficulty and with excellent hemostasis. Each tubal segment was pulled out through the 5-mm port site without difficulty. Following this, pressures inside the abdomen were taken down to less than 5 and all pedicle sites revealed excellent hemostasis. Following this, all ports, gas and instruments were removed from the patient's abdomen. The skin incisions were then closed with Dermabond and then the vaginal instruments were then removed without difficulty. At this point in time, the procedure was terminated. All sponge, lap and needle counts were correct x2. The patient tolerated the procedure well. The patient was taken to recovery in stable condition. DICTATING PHYSICIAN: Danny Cline DO [id number] PHY#: [id number] ID: [id number] JOB#: [id number] ACCT: [id number] cc:Danny Cline D.O. >
== END 2017-06-30 12:00 | disposition home or self-care (01) ==
LOC: OROUT 06:19
PROVIDERS: ATTEND Obstetrics & Gynecology
PROC: 0UT74ZZ Resection of Bilateral Fallopian Tubes, Percutaneous Endoscopic Approach (ICD-10-PCS; principal; 2017-06-30 08:30)
DX: Z30.2 Encounter for sterilization (principal); Z87.891 Personal history of nicotine dependence
CPT/HCPCS: 58661; 36415; 85027; 81025; 81001; 88302 ×2; J2250; J3490 ×3; J1100; J3010; J1170; J0330; J2405; J2704; S0028; J0131; 840